=== PATIENT | female | born 1950 | race Caucasian/White ===

== ENCOUNTER 2020-04-25 14:55 | Outpatient (REF) | payer OTHER, SELFPAY ==
--- NOTE | 2020-04-25 15:01 | MM_ITS ---
EXAMINATION: BONE DENSITOMETRY CLINICAL INDICATION: Age-related osteoporosis without current pathological fracture. COMPARISON: Baseline BD dated 08/17/2017. TECHNIQUE: Using a Vinsula DXA System (software version: 13.1) manufactured by [employer], dual-energy x-ray absorptiometry was performed of the lumbar spine and left hip. The images are of good technical quality. Summary results are attached. FINDINGS: AP SPINE L1-L4: Current: BMD 1.028 g/cm2, Z-score 0.8, T-score -1.3, osteopenia, 1.2% decrease from baseline (<5% change is not significant). Baseline: BMD 1.041 g/cm2. LEFT FEMUR, NECK: Current: BMD 0.607 g/cm2, Z-score -1.2, T-score -3.1, osteoporosis. Baseline: BMD 0.651 g/cm2. LEFT FEMUR, TOTAL: Current: BMD 0.703 g/cm2, Z-score -0.8, T-score -2.4, osteopenia, 6.4% decrease from baseline (<5% change is not significant). Baseline: BMD 0.751 g/cm2. IDENTIFIED RISK FACTORS: Osteoporosis, low body weight, menopause. HISTORY OF FRACTURE: None listed. MEDICATIONS: Calcium supplements or multivitamin, vitamin D. MM/XR DEXA axial skeleton IMPRESSION: 1. DIAGNOSIS: Osteoporosis based on the lowest T-score value of -3.1 in the femoral neck applying World Health Organization criteria. 2. 10-YEAR FRACTURE RISK PREDICTION, FRAX: Major osteoporotic fracture (clinical spine, forearm, hip or shoulder) 18.0%. Hip fracture 6.2%. 3. Treatment Recommendations: NOF guidelines recommend consideration for treatment in postmenopausal women and men age 50 and older presenting with the following: -A hip or vertebral (clinical or morphometric) fracture. -T-score less than or equal to -2.5 at the femoral neck or spine after appropriate evaluation to exclude secondary causes. -Low bone mass at the hip or spine and a 10-year fracture probability by FRAX of greater than or equal to 3% for hip fracture or greater than or equal to 20% for major osteoporotic fracture based on the [place] adapted WHO algorithm. 4. Other Recommendations: All treatment decisions require clinical judgment and consideration of individual patient factors, including patient preferences, comorbidities, previous drug use, risk factors not captured in the FRAX model (e.g. frailty, falls, vitamin D deficiency, increased bone turnover, interval significant decline in bone density) and possible under or overestimation of fracture risk by FRAX. Additional medical evaluation for secondary cause of low bone mineral density may be appropriate. FUTURE SCAN RECOMMENDATION: People with diagnosed cases of osteoporosis or at high risk for fracture should have regular bone mineral density tests. For patients eligible for Medicare, routine testing is allowed once every 2 years. The testing frequency can be increased to one year for patients who have rapidly progressing disease, those who are receiving or discontinuing medical therapy to restore bone mass, or have additional risk factors.
== END 2020-04-25 14:56 | disposition home or self-care (01) ==
LOC: HO.MAMMO 14:55
PROVIDERS: PCP Internal Medicine; Visit Provider Internal Medicine
DX: M81.0 Age-related osteoporosis without current pathological fracture (principal); E53.8 Deficiency of other specified B group vitamins; E55.9 Vitamin D deficiency, unspecified; E78.00 Pure hypercholesterolemia, unspecified
CPT/HCPCS: 77080

== ENCOUNTER 2020-05-07 08:21 | Outpatient (REF) | payer OTHER, SELFPAY ==
[2020-05-07 08:55] LABS: COVID-19 Test Negative (Negative)
== END 2020-05-07 08:22 | disposition home or self-care (01) ==
LOC: HO.EMPCOV 08:21
PROVIDERS: Visit Provider Internal Medicine
DX: Z20.822 Contact with and (suspected) exposure to COVID-19 (principal)
CPT/HCPCS: 36415; 87635; C9803

== ENCOUNTER 2020-07-08 12:51 | Outpatient (REF) | payer OTHER, SELFPAY ==
--- NOTE | ~2020-07-08 | MM_ITS ---
EXAMINATION: MM SCREENING DIGITAL BREAST TOMOSYNTHESIS, BILATERAL CLINICAL INFORMATION: Screening. Asymptomatic. The lifetime risk of breast cancer based on the Tyrer-Cuzick Model is 5%. COMPARISON: Mammography: 07/03/2019, 06/21/2018, 06/10/2017 TECHNIQUE: Digital breast tomosynthesis is performed in both the craniocaudal and mediolateral oblique views along with computer-aided detection (CAD). Synthesized 2D images are generated from the tomosynthesis. FINDINGS: There are scattered areas of fibroglandular density (ACR BI-RADS breast composition Category b). There are no significant masses, abnormal calcifications, or other abnormalities. There is biopsy clip marker mid to posterior 9:00 right breast. The axilla and skin contours are unremarkable. No significant changes. MM/MM tomosynthesis screening BI IMPRESSION: No mammographic evidence of malignancy. ASSESSMENT: BI-RADS 1: Negative RECOMMENDATION: Routine annual mammography screening. This patient's information was entered into a reminder system with a target due date for their next mammogram.
== END 2020-07-08 12:52 | disposition home or self-care (01) ==
LOC: HO.MAMMO 12:51
PROVIDERS: Visit Provider Internal Medicine
DX: Z12.31 Encounter for screening mammogram for malignant neoplasm of breast (principal)
CPT/HCPCS: 77063; 77067

== ENCOUNTER 2020-07-29 08:35 | Outpatient (REF) | payer OTHER, SELFPAY ==
[2020-07-29 09:22] LABS: COVID-19 Test Negative (Negative)
== END 2020-07-29 08:36 | disposition home or self-care (01) ==
LOC: HO.EMPCOV 08:35
PROVIDERS: Visit Provider Internal Medicine
DX: Z20.822 Contact with and (suspected) exposure to COVID-19 (principal)
CPT/HCPCS: 36415; 87635; C9803

== ENCOUNTER → 2021-06-18 11:24 | Outpatient (REF) | payer OTHER, SELFPAY ==
--- NOTE | 2021-06-18 11:36 | ECG_ITS ---
Test Reason : 54.9 Blood Pressure : / mmHG Vent. Rate : 085 BPM Atrial Rate : 085 BPM P-R Int : 130 ms QRS Dur : 072 ms QT Int : 352 ms P-R-T Axes : 070 015 000 degrees QTc Int : 418 ms Normal sinus rhythm Nonspecific ST and T wave abnormality Abnormal ECG When compared with ECG of 02-MAR-2014 09:20, Nonspecific T wave abnormality now evident in Lateral leads Referred By: Meghana Garcia Electronically Signed By:Cuate Perez
[2021-06-18 14:01] LABS: Appearance Urine HAZY; Color Urine YELLOW; Glucose Urine UA NEG (NEG); Leukocyte Esterase Urine NEG (NEG); Nitrite Urine NEG (NEG); PH 5.5 (5.0-8.0); Specific Gravity - Urine >= 1.030 (1.005-1.025); Urine Blood NEG (NEG); Urine Ketones NEG (NEG); Urine Protein TRACE MG/DL (NEG-TRACE)
== END ==
LOC: HO.CARD 11:24
PROVIDERS: PCP Internal Medicine; Visit Provider Nurse Practitioner Family
DX: M54.9 Dorsalgia, unspecified (principal)
CPT/HCPCS: 81003; 93005

== ENCOUNTER 2021-06-23 15:24 | Outpatient (REF) | payer OTHER, SELFPAY ==
[2021-06-23 16:12] LABS: Anion Gap 10 (12-20); Blood Urea Nitrogen 13 mg/dL (9-16); Calcium 9.6 mg/dL (8.4-10.2); Carbon Dioxide 33 mmol/L (22-29); Chloride 102 mmol/L (96-108); Estimated Glomerular Filt Rate > 60; Glucose Random 101 mg/dL (60-115); Potassium 3.9 mmol/L (3.3-5.1); Sodium 141 mmol/L (135-145)
== END 2021-06-23 15:25 | disposition home or self-care (01) ==
LOC: HO.LAB 15:24
PROVIDERS: PCP Internal Medicine; Visit Provider Nurse Practitioner Family
DX: M54.9 Dorsalgia, unspecified (principal); R80.9 Proteinuria, unspecified
CPT/HCPCS: 36415; 80048

== ENCOUNTER 2021-06-27 13:21 | Emergency (ER) | payer OTHER, SELFPAY ==
--- NOTE | 2021-06-27 | ECG_ITS ---
Test Reason : back pain Blood Pressure : / mmHG Vent. Rate : 071 BPM Atrial Rate : 071 BPM P-R Int : 134 ms QRS Dur : 074 ms QT Int : 344 ms P-R-T Axes : 070 013 036 degrees QTc Int : 373 ms Normal sinus rhythm with sinus arrhythmia Nonspecific ST abnormality Abnormal ECG When compared with ECG of 18-JUN-2021 11:42, Nonspecific T wave abnormality, improved in Inferior leads Referred By: Generic ED Physician Electronically Signed By:BHUMIKA PARISI MD
--- NOTE | ~2021-06-27 | CT_ITS ---
CT angiogram of chest and abdomen with contrast HISTORY: Mid back pain radiating to the abdomen. TECHNIQUE: CT images were obtained from the thoracic inlet to below the level of the aortic bifurcation following the administration of 71 cc of Omnipaque intravenous contrast. MIP images were also constructed by the technologist on the CT console. This CT examination was performed using dose optimization techniques as appropriate, variously including the following: *Automated exposure control *Adjustment of mA and/or kV according to patient size (this includes techniques or standardized protocols for targeted exams where dose is matched to indication/reason for exam; i.e. extremities or head) *Use of iterative reconstruction technique COMPARISON: CT abdomen/pelvis dated from 03/02/2014. FINDINGS: VASCULAR: The thoracic and abdominal aorta are tortuous and demonstrates atherosclerotic disease but no evidence of dissection or aneurysm. No filling defects are identified within the central pulmonary arteries. The celiac, superior mesenteric, inferior mesenteric, and renal arteries are patent. NONVASCULAR: Chest: Lung: No focal consolidation or pleural effusion. Airways are patent. There is a 0.3 cm calcified nodule in the right lower lobe (7:265). Mediastinum: Normal heart size. Coronary calcifications. No pericardial effusion. No hilar or mediastinal lymphadenopathy. Normal thyroid gland. Pericardium/Pleura: No pleural effusion. No pleural mass or thickening. No pneumothorax. Chest Wall/Axilla: No lymphadenopathy by size criteria. ABDOMEN/PELVIS: Evaluation of the solid organs is limited by the early phase of intravenous contrast. Peritoneal Space: No free air or free fluid. Liver, Gallbladder, Biliary Tree: The liver is normal in size, shape, and attenuation. No focal hepatic lesion or biliary ductal dilatation is present. The gallbladder is unremarkable with no evidence of radiopaque gallstones, gallbladder wall thickening, or obvious pericholecystic inflammatory changes. Pancreas: Unremarkable. Spleen: Unremarkable. Adrenal Glands: A 1.3 x 1 cm lesion in the medial limb of the left adrenal gland is unchanged since 2013. Kidneys and Ureters: The kidneys are normal in size, shape, and attenuation. No hydronephrosis, hydroureter, or calculi seen. No perinephric stranding. Bladder: Underdistended and suboptimally assessed. Gastrointestinal Tract: The stomach and the small bowel are nondilated. Normal appendix. Moderate stool burden throughout the colon. No pericolic inflammatory changes or bowel obstruction. Abdominal Wall: No significant hernia is appreciated. Lymphoid Structures: No lymphadenopathy by size criteria. Osseus Structures: A compression deformity involving T8 is new since 2014. Additional less pronounced compression deformities involving T12, L2, L3, L4 and L5 are also new. Multilevel thoracolumbar spondylosis. Increased sclerosis of both femoral heads suggesting avascular necrosis. CT/CT angio abdomen pelvis IMPRESSION: No evidence of aortic dissection. New compression deformities in the thoracolumbar spine as above. Correlate with point tenderness. Increased sclerosis of the femoral heads raising the possibility of avascular necrosis. No other acute abnormalities in the chest, abdomen or pelvis to explain the patient's symptoms.
[2021-06-27 14:40] VITALS: BP 156/85; PULSE 94; RESP 18; TEMP 36.8; O2SAT 97; BMI 22.4
[2021-06-27 18:00] VITALS: BP 113/70; PULSE 70; RESP 14; O2SAT 97
[2021-06-27 18:01] LABS: Appearance Urine CLEAR; Color Urine YELLOW; Glucose Urine UA NEG (NEG); Leukocyte Esterase Urine NEG (NEG); Nitrite Urine NEG (NEG); Specific Gravity - Urine >= 1.030 (1.005-1.025); Urine Blood NEG (NEG); Urine Ketones 5 MG/DL (NEG); Urine Protein TRACE MG/DL (NEG-TRACE)
[2021-06-27 18:01] LABS: MANUAL DIFF FLAG NO
[2021-06-27 18:13] LABS: INTERNATIONAL NORM RATIO 1.1 (0.9-1.1); Prothrombin Time 12.4 SEC (9.9-13.0)
[2021-06-27 18:17] LABS: Basophils Percent Auto 0.3 % (0-2); Eosinophils Absolute Auto 0.1 X10*3/uL (0.0-0.4); Eosinophils Percent Auto 1.7 % (0-4); Hematocrit 36.7 % (37.0-47.0); Imm Gran Abs Auto 0.01 X10*3/uL (0.00-0.03); Imm Gran Pct Auto 0.1 % (0.0-0.4); Lymphocytes Absolute Auto 1.5 X10*3/uL (1.2-4.9); Lymphocytes Percent Auto 20.9 % (20-40); Mean Corpuscular HGB Conc 32.7 g/dl (31.0-35.0); Mean Corpuscular Hemoglobin 31.3 pg (27.0-33.0); Mean Corpuscular Volume 95.8 fL (80.0-98.0); Mean Platelet Volume 10.5 fL (9.4-12.3); Monocytes Absolute Auto 0.6 X10*3/uL (0.1-1.2); Neutrophils Absolute Auto 4.8 x10*3/uL (2.0-8.3); Platelet Count 226 X10*3/uL (160-400); Red Blood Count 3.83 X10*6/uL (4.20-5.50); Red Cell Distribution Width 12.6 % (11.0-16.0)
[2021-06-27 18:18] LABS: Alanine Aminotransferase 13 U/L (0-31); Albumin Level 4.2 g/dL (3.5-5.0); Alkaline Phosphatase 82 U/L (39-117); Anion Gap 11 (12-20); Aspartate Amino Transferase 17 U/L (5-31); Bilirubin Total 0.6 mg/dL (0.0-1.0); Blood Urea Nitrogen 10 mg/dL (9-16); Calcium 9.5 mg/dL (8.4-10.2); Carbon Dioxide 31 mmol/L (22-29); Chloride 104 mmol/L (96-108); Creatinine Clr Calc Pharmacy 52.7; Estimated Glomerular Filt Rate > 60; Glucose Random 125 mg/dL (60-115); Magnesium 2.3 mg/dL (1.6-2.6); Potassium 3.5 mmol/L (3.3-5.1); Sodium 142 mmol/L (135-145); Total Protein 6.8 g/dL (6.5-8.0)
--- NOTE | 2021-06-27 18:18 | ED_ITS ---
HPI - Back Pain/Injury General Chief Complaint: Back Pain/Injury <BRENNEN Granado - Last Filed: 06/27/21 18:55> Stated Complaint: mid back pain <BRENNEN Granado Last Filed: 06/27/21 18:55> Time Seen by Provider: 06/27/21 17:19 <BRENNEN Granado Last Filed: 06/27/21 18:55> Source: patient <BRENNEN Granado Last Filed: 06/27/21 18:55> Mode of arrival: ambulatory <BRENNEN Granado - Last Filed: 06/27/21 18:55> Limitations: no limitations <BRENNEN Granado Last Filed: 06/27/21 18:55> History of Present Illness HPI Narrative: 70-year-old female with a past medical history of hiatal hernia, hypercholesterolemia, B12 deficiency, low vitamin-D level and osteoporosis presenting to the ED with complaints of a traumatic mid back pain between her scapula near her bra line that she believes radiates intermittently 2 bilateral flank/abdomen for the past 18 days. She reports that it is worse more on the left side than the right. She reports that it is worse when she lays down, bends over or lift anything heavy. She reports that she does carry a heavy pur se and heavy work bag. She reports that she carries them on either arm not always on the left arm. She reports that the pain is better with a sitting position. She has not used anything for the pain other them Tums due to she called Dr. Campa and he told her it could be related to acid reflux although he recommended her to follow-up with her primary care provider. Then she was seen by her primary care provider and had outpatient blood work along with an EKG and her outpatient blood work showed an elevated CO2 level of 33 and her anion gap was 10 otherwise she was told all her other labs were normal. She also had an EKG which revealed nonspecific ST and T-wave abnormalities which was different when compared to her EKG on 03/02/2014. She reports that her PCP believes this might be musculoskeletal in origin and referred her to physical therapy. Although patient is concerned that this could be something else therefore she came here for further evaluation treatment. She denies any fevers, chills, dizziness, headaches, loss of taste or smell, nasal congestion, sore throat, trouble swallowing or breathing, ear pain or ringing, chest pain or shortness of breath, dyspnea on exertion, orthopnea, palpitations, rashes, recent falls or trauma, IV drug use, history of cancer, hypercoagulation disorder, dysuria, hematuria, abnormal vaginal discharge, black or bloody stools, recent travel or sick contacts or any other symptoms complaints or concerns at this time. <BRENNEN Granado - Last Filed: 06/27/21 18:55> MD elicited complaint: back pain <BRENNEN Granado - Last Filed: 06/27/21 18:55> Onset (ago): day(s) (18 ) <BRENNEN Granado - Last Filed: 06/27/21 18:55> Timing: intermittent <BRENNEN Granado - Last Filed: 06/27/21 18:55> Severity: moderate <BRENNEN Granado - Last Filed: 06/27/21 18:55> Similar Symptoms Previously: No <BRENNEN Granado - Last Filed: 06/27/21 18:55> Quality: aching (Feels like a bruise per patient) <BRENNEN Granado - Last Filed: 06/27/21 18:55> Location: thoracic spine <BRENNEN Granado - Last Filed: 06/27/21 18:55> Radiation: abdomen (Bilateral flank) <BRENNEN Granado - Last Filed: 06/27/21 18:55> Exacerbating factors: supine positioning and lifting (Or bending over) <BRENNEN Granado - Last Filed: 06/27/21 18:55> Relieving factors: none <BRENNEN Granado - Last Filed: 06/27/21 18:55> Context: unknown <BRENNEN Granado - Last Filed: 06/27/21 18:55> Associated symptoms: abdominal pain <BRENNEN Granado Last Filed: 06/27/21 18:55> Work related injury: No <BERNNEN Granado - Last Filed: 06/27/21 18:55> Related Data Home Medications: Previous Rx's Medication Instructions Recorded diclofenac sodium 1 % topical gel 2 g TOPICAL QID PRN #100 g 06/18/21 (Arthritis Pain (diclofenac)) lidocaine 4 % topical patch 1 patch TOPICAL DAILY PRN #15 ea 06/18/21 (Aspercreme (lidocaine)) cyclobenzaprine 10 mg tablet 10 mg PO Q8H PRN #14 tab 06/27/21 <BRENNEN Granado - Last Filed: 06/27/21 18:55> Allergies/Adverse Reactions: Allergies Allergy/AdvReac Type Severity Reaction Status Date / Time No Known Allergies Allergy Verified 06/27/21 14:40 [No Known Allergies*] <BRENNEN Granado - Last Filed: 06/27/21 18:55> Review of Systems Review of Systems: Constitutional : No trauma, No Weight loss, No Fever, No Chills, ENT/Mouth : No Hearing loss, No Ear Pain, No Nasal Congestion, No Sinus Pain, No Hoarseness, No sore throat, No Rhinorrhea, No Swallowing Difficulty Cardiovascular : No Chest Pain, No SOB Respiratory : No Cough, No Dyspnea Gastrointestinal : No Nausea, No Vomiting, No Diarrhea, + abdominal Pain, No Hematochezia, No Melena Genitourinary : No Dysuria, No Urinary Frequency, No Hematuria, No Urinary or Bowel Incontinence/retention Musculoskeletal : + Back pain, No neck pain, No joint stiffness, No joint swelling Skin : No Skin Lesions, No rash or signs of infection Neuro : No Weakness, No radiation, No Numbness, No Paresthesias, No headache, no loss of bowel or bladder incontinence, no saddle anesthesia, Focal weakness, No radiation Denies history of IV drug usage. <BRENNEN Granado - Last Filed: 06/27/21 18:55> Yes all other systems are reviewed and are negative <BRENNEN Granado - Last Filed: 06/27/21 18:55> PMF Past Medical History Attestation statement: The following information was validated with the patient. <BRENNEN Granado - Last Filed: 06/27/21 18:55> Medical History: Medical History B12 deficiency Hiatal hernia Hypovitaminosis D Osteoporosis Pure hypercholesterolemia <BRENNEN Granado - Last Filed: 06/27/21 18:55> Surgical History: Surgical History History of breast biopsy <BRENNEN Granado - Last Filed: 06/27/21 18:55> Family History Family History: Family History Father No problems noted. Mother No problems noted. Maternal Grandmother No problems noted. <BRENNEN Granado - Last Filed: 06/27/21 18:55> Social History Social History: Social History Housing: House Alcohol intake: never Patient Tobacco Use Status: Former Tobacco user Tobacco use type: Cigarette e-Cigarette/Vaping Use: Never Used Second Hand Smoke Exposure: No Advance Directives: No Advance Directives Information Provided: Yes service: No Current occupational status: employed <BRENNEN Granado - Last Filed: 06/27/21 18:55> Physical Exam Vital Signs: Vital Signs: Last Vital Signs Temp 98.2 F 06/27/21 14:40 Pulse 70 06/27/21 18:00 Resp 14 06/27/21 18:00 BP 113/70 06/27/21 18:00 Pulse Ox 97 06/27/21 18:00 BMI result Body Mass Index 22.4 vital signs have been reviewed as normal and appeared to be correct. Blood pressure 156/85. Heart rate normal. Respiration rate normal. Temperature normal. Oxygen saturation normal. <BRENNEN Granado - Last Filed: 06/27/21 18:55> Appearance: Alert. Oriented X3. No acute distress. Head: Normal external exam. Normocephalic. Atraumatic. Eyes: PERRLA. EOMI. Conjunctiva and sclera normal. Eyelids normal. ENT: Pharynx normal. Uvula midline. Moist mucous membranes. Neck: Normal inspection. Neck supple. FROM. No adenopathy. Thyroid Normal. No meningeal signs. No neck mass noted. CVS: Normal heart rate and rhythm. Heart sound normal. No murmurs noted. Pulses normal throughout. Respiratory: No respiratory distress. Painless inspiration. Breath sounds normal. No wheezes/rales/rhonchi noted. Chest nontender. No accessory muscle usage noted or decreased air movement noted. Abdomen: Soft and nontender. Bowel sounds normal in all 4 quadrants. No distention noted. No organomegaly noted. No visible injury noted. Back: No CVA tenderness. Full range of motion noted. No obvious deformities, or edema. Full ROM in back and lower extremities. 5/5 strength hip extension/flexion, abduction, adduction. Straight leg raise test negative on right; Straight leg raise test negative on left; Reflexes normal ankle and knee bilaterally; EHL motor strength normal bilaterally. No rashes/lesion/induration/fluctuance or signs infection noted. Skin: Skin warm and dry. Normal skin color. Normal skin turgor. No rashes/lesions/lacerations noted. Nontender at this time. Extremities: No lower extremity edema. No calf tenderness is noted. Extremities exhibit normal range of motion. Extremities nontender. Neuro: Oriented X 3. No motor deficit. No sensory deficit. Reflexes normal. Patient has a normal steady gait. Vascular: + 2 radial pulses b/l. +2 distal pedal pulses b/l. No cyanosis noted to upper lower extremity nails. Patient noted to have normal capillary refill to upper and lower extremities. <BRENNEN Granado - Last Filed: 06/27/21 18:55> Course Course Course Narrative: 17:30pm - 70-year-old female c PMHX of hiatal hernia, hypercholesterolemia, B12 defic iency, low vitamin-D level and osteoporosis presenting to the ED with complaints of a traumatic mid back pain between her scapula near her bra line that she believes radiates intermittently 2 bilateral flank/abdomen for the past 18 days. She reports that it is worse more on the left side than the right. She reports that it is worse when she lays down, bends over or lift anything heavy. She reports that she does carry a heavy purse and heavy work bag. She reports that she carries them on either arm not always on the left arm. She reports that the pain is better with a sitting position. She has not used anything for the pain other them Tums due to she called Dr. Campa and he told her it could be related to acid reflux although he recommended her to follow-up with her primary care provider. Then she was seen by her primary care provider and had outpatient blood work along with an EKG and her outpatient blood work showed an elevated CO2 level of 33 and her anion gap was 10 otherwise she was told all her other labs were normal. She also had an EKG which revealed nonspecific ST and T-wave abnormalities which was different when compared to her EKG on 03/02/2014. She reports that her PCP believes this might be musculoskeletal in origin and referred her to physical therapy. Plan: Labs, EKG, CTA of chest and CT scan abdomen and pelvis then re-evaluate. <BRENNEN Granado - Last Filed: 06/27/21 18:55> Reevaluation(s) Reevaluation #1: - labs obtained and patient with mild anemia with an RBC of 3.83. Hematocrit 36.7. Hemoglobin is 12 which is normal. Carbon dioxide 31. Anion gap 11. Random glucose 125. Otherwise all other labs are within normal limits. UA revealed a trace of protein and 5 ketones otherwise no evidence of UTI. - awaiting CTA of chest and CT scan abdomen pelvis. Will re-evaluate <BRENNEN Granado - Last Filed: 06/27/21 18:55> Time: 18:35 <BRENNEN Granado - Last Filed: 06/27/21 18:55> Reevaluation #2: - Sign out to DENNY Ewing pending CT scans if negative patient can be di scharged with Flexeril. Patient understands agrees with this plan. <BRENNEN Granado - Last Filed: 06/27/21 18:55> Time: 18:55 <BRENNEN Granado - Last Filed: 06/27/21 18:55> MDM - Back Pain/Injury Medical Records Attestation: I reviewed the patient's medical records. <BRENNEN Granado - Last Filed: 06/27/21 18:55> Lab Data Attestation: I reviewed the patient's lab results. <BRENNEN Granado - Last Filed: 06/27/21 18:55> Result diagrams: : 06/27/21 17:54 06/27/21 17:54 <BRENNEN Granado Last Filed: 06/27/21 18:55> Labs: Lab Results 06/27/21 06/27/21 06/27/21 Range/Units 17:45 17:54 17:54 WBC 7.0 (4.8-10.8) X10*3/uL RBC 3.83 L (4.20-5.50) X10*6/uL Hgb 12.0 (12.0-16.0) g/dl Hct 36.7 L (37.0-47.0) % MCV 95.8 (80.0-98.0) fL MCH 31.3 (27.0-33.0) pg MCHC 32.7 (31.0-35.0) g/dl RDW 12.6 (11.0-16.0) % Plt Count 226 (160-400) X10*3/uL MPV 10.5 (9.4-12.3) fL Immature Gran % (Auto) 0.1 (0.0-0.4) % Neut % (Auto) 68.0 (45-73) % Lymph % (Auto) 20.9 (20-40) % Hodgeman % (Auto) 9.0 (2-11) % Eos % (Auto) 1.7 (0-4) % Baso % (Auto) 0.3 (0-2) % Lymph # (Auto) 1.5 (1.2-4.9) X10*3/uL Hodgeman # (Auto) 0.6 (0.1-1.2) X10*3/uL Eos # (Auto) 0.1 (0.0-0.4) X10*3/uL Baso # (Auto) 0.0 (0.0-0.2) X10*3/uL Abs Immat Gran (auto) 0.01 (0.00-0.03) X10*3/uL Absolute Neuts (auto) 4.8 (2.0-8.3) x10*3/uL Absolute Nucleated RBC 0.000 (0.0-0.012) X10*3/uL Nucleated RBC % (auto) 0.0 (0.0-0.2) /100WBC PT 12.4 (9.9-13.0) SEC INR 1.1 (0.9-1.1) Sodium (135-145) mmol/L Potassium (3.3-5.1) mmol/L Chloride (96-108) mmol/L Carbon Dioxide (22-29) mmol/L Anion Gap (12-20) BUN (9-16) mg/dL Creatinine (0.5-1.4) mg/dL Estim Creat Clear Calc Estimated GFR Random Glucose (60-115) mg/dL Calcium (8.4-10.2) mg/dL Magnesium (1.6-2.6) mg/dL Total Bilirubin (0.0-1.0) mg/dL AST (5-31) U/L ALT (0-31) U/L Alkaline Phosphatase (39-117) U/L Troponin I High Sens (<3.5-17.0) ng/L Total Protein (6.5-8.0) g/dL Albumin (3.5-5.0) g/dL Urine Color YELLOW Urine Appearance CLEAR Urine pH 6.0 (5.0-8.0) Ur Specific Union >= 1.030 H (1.005-1.025) Urine Protein TRACE (NEG-TRACE) MG/DL Urine Glucose (UA) NEG (NEG) MG/DL Urine Ketones 5 (NEG) MG/DL Urine Blood NEG (NEG) Urine Nitrite NEG (NEG) Ur Leukocyte Esterase NEG (NEG) 06/27/21 06/27/21 Range/Units 17:54 17:54 WBC (4.8-10.8) X10*3/uL RBC (4.20-5.50) X10*6/uL Hgb (12.0-16.0) g/dl Hct (37.0-47.0) % MCV (80.0-98.0) fL MCH (27.0-33.0) pg MCHC (31.0-35.0) g/dl RDW (11.0-16.0) % Plt Count (160-400) X10*3/uL MPV (9.4-12.3) fL Immature Gran % (Auto) (0.0-0.4) % Neut % (Auto) (45-73) % Lymph % (Auto) (20-40) % Hodgeman % (Auto) (2-11) % Eos % (Auto) (0-4) % Baso % (Auto) (0-2) % Lymph # (Auto) (1.2-4.9) X10*3/uL Hodgeman # (Auto) (0.1-1.2) X10*3/uL Eos # (Auto) (0.0-0.4) X10*3/uL Baso # (Auto) (0.0-0.2) X10*3/uL Abs Immat Gran (auto) (0.00-0.03) X10*3/uL Absolute Neuts (auto) (2.0-8.3) x10*3/uL Absolute Nucleated RBC (0.0-0.012) X10*3/uL Nucleated RBC % (auto) (0.0-0.2) /100WBC PT (9.9-13.0) SEC INR (0.9-1.1) Sodium 142 (135-145) mmol/L Potassium 3.5 (3.3-5.1) mmol/L Chloride 104 (96-108) mmol/L Carbon Dioxide 31 H (22-29) mmol/L Anion Gap 11 L (12-20) BUN 10 (9-16) mg/dL Creatinine 0.76 (0.5-1.4) mg/dL Estim Creat Clear Calc 52.7 Estimated GFR > 60 Random Glucose 125 H (60-115) mg/dL Calcium 9.5 (8.4-10.2) mg/dL Magnesium 2.3 (1.6-2.6) mg/dL Total Bilirubin 0.6 (0.0-1.0) mg/dL AST 17 (5-31) U/L ALT 13 (0-31) U/L Alkaline Phosphatase 82 (39-117) U/L Troponin I High Sens < 3.5 (<3.5-17.0) ng/L Total Protein 6.8 (6.5-8.0) g/dL Albumin 4.2 (3.5-5.0) g/dL Urine Color Urine Appearance Urine pH (5.0-8.0) Ur Specific Union (1.005-1.025) Urine Protein (NEG-TRACE) MG/DL Urine Glucose (UA) (NEG) MG/DL Urine Ketones (NEG) MG/DL Urine Blood (NEG) Urine Nitrite (NEG) Ur Leukocyte Esterase (NEG) <BRENNEN Granado - Last Filed: 06/27/21 18:55> ECG Data Attestation: I personally reviewed and interpreted this ECG as follows: <BRENNEN Granado - Last Filed: 06/27/21 18:55> ECG interpretation date: 06/27/21 <BRENNEN Granado - Last Filed: 06/27/21 18:55> ECG interpretation time: 14:46 <BRENNEN Granado - Last Filed: 06/27/21 18:55> Interpretation: Normal sinus rhythm with sinus arrhythmia with ventricular rate of [address] abnormalities no acute ischemic changes are noted. Similar when compared to prior EKG on 06/18/2021. <BRENNEN Granado Last Filed: 06/27/21 18:55> Discharge Plan Discharge Clinical Impression: Back strain <BRENNEN Granado Last Filed: 06/27/21 18:55> Patient Disposition: Still a Patient <BRENNEN Granado Last Filed: 06/27/21 18:55> Instructions: Back Pain (ED) <BRENNEN Granado Last Filed: 06/27/21 18:55> Prescriptions: New cyclobenzaprine 10 mg tablet 10 mg PO Q8H PRN (Reason: Muscle spasm) Qty: 14 0RF No Action lidocaine [Aspercreme (lidocaine HCl)] 4 % adhesive patch,medicated 1 patch topical DAILY PRN (Reason: pain) Qty: 15 0RF diclofenac sodium [Arthritis Pain (diclofenac)] 1 % gel 2 g topical QID PRN (Reason: pain) Qty: 100 0RF Rx Instructions: apply to single elbow, wrist or hand; for hand includes palm/fingers/back of hand <BRENNEN Granado Last Filed: 06/27/21 18:55> Referrals: Samantha Aguilar MD [Primary Care Provider] - 2 days <BRENNEN Granado - Last Filed: 06/27/21 18:55> Print Language: Latvian <BRENNEN Granado Last Filed: 06/27/21 18:55>
[2021-06-27 18:22] LABS: Troponin-I High Sensitivity < 3.5 ng/L (<3.5-17.0)
[2021-06-27] MEDS: 0.9 % Sodium Chloride 1,000 ML 999 ML IVCONT (18:32)
[2021-06-27] MEDS: iohexoL 350 MG/ML 100 ML INFUS..BTL IV (19:21)
== END 2021-06-27 21:11 | disposition home or self-care (01) ==
PROVIDERS: Physician Assistant Medical; Emergency Provider Emergency Medicine; PCP Internal Medicine
DX: S29.012A Strain of muscle and tendon of back wall of thorax, initial encounter (principal); M81.0 Age-related osteoporosis without current pathological fracture; X58.XXXA Exposure to other specified factors, initial encounter; Y93.9 Activity, unspecified; Y92.9 Unspecified place or not applicable; Y99.9 Unspecified external cause status
CPT/HCPCS: 36415; 71275; 74174; 80053; 81003; 83735; 84484; 85025; 85610; 93005; 96360; 99284; Q9967

== ENCOUNTER → 2021-07-31 08:36 | Outpatient (REF) | payer OTHER, SELFPAY ==
--- NOTE | 2021-07-31 09:41 | CA_ITS ---
Acquisition Time: 2021-07-31 09:02:17 Total Exercise Time: 00:05:01 Test Indications: Abnormal ECG Medications: Protocol: AIMEE Max HR: 146 BPM 96% of Pred: 151 BPM Max BP: 176/062 mmHG Max Work Load: 7.0 METS Exercise stress test with exercise 5 min 1 sec of Aimee protocol, achieving 96% MPHR, 7 METs, without anginal symptoms, without arrythmia, with normotensive response to exercise, with EKGs showing ST depression with upsloping ST segments inferiorly and V4-V6 which does meet criteria for ischemia. EKG at baseline does show a ST scooping/ slight depression inferiorly which could make EKG changes nondiagnostic. Message sent to PCP with report and recommendations for further evaluation. Pt reports not being able to complete the nuclear stress test due to claustrophobia and back pains laying on table. Test reviewed with Dr Perez. Referred By: Meghana Garcia Overread By: SCARLETT GOMEZ
== END ==
LOC: HO.CARD 08:36
PROVIDERS: Visit Provider Nurse Practitioner Family
DX: R94.31 Abnormal electrocardiogram [ECG] [EKG] (principal)
CPT/HCPCS: 93017

== ENCOUNTER 2021-08-01 11:35 | Emergency (ER) | payer OTHER, SELFPAY ==
--- NOTE | 2021-08-01 | ECG_ITS ---
Test Reason : chest pain Blood Pressure : / mmHG Vent. Rate : 084 BPM Atrial Rate : 084 BPM P-R Int : 132 ms QRS Dur : 076 ms QT Int : 340 ms P-R-T Axes : 071 013 028 degrees QTc Int : 401 ms Normal sinus rhythm Possible Left atrial enlargement Nonspecific ST abnormality Abnormal ECG When compared with ECG of 27-JUN-2021 14:46, No significant change was found Referred By: Generic ED Physician Electronically Signed By:Cuate Perez
--- NOTE | ~2021-08-01 | XR_ITS ---
EXAMINATION: PORTABLE CHEST 1 VIEW CLINICAL INFORMATION: chest pain . COMPARISON: 06/28/2019 CT scan. TECHNIQUE: Portable frontal view of the chest was obtained. FINDINGS: The lungs are well expanded. Mild chronic appearing reticular markings but no superimposed focal infiltrate, effusion, edema, or pneumothorax. Cardiac and mediastinal silhouettes are within normal limits for technique. No acute bony abnormality seen. XR/XR chest 1V IMPRESSION: No evidence of acute disease.
[2021-08-01 11:44] VITALS: BP 135/75; PULSE 90; RESP 18; TEMP 36.4; O2SAT 99; BMI 22.8
--- NOTE | 2021-08-01 12:01 | ED_ITS ---
HPI - Chest Pain General Chief Complaint: Chest Pain Stated Complaint: Chest pain Time Seen by Provider: 08/01/21 11:52 Source: patient Mode of arrival: ambulatory Limitations: no limitations History of Present Illness HPI narrative: stress test 07/31 could not complete nuclear portion due to back pains Exercise stress test with exercise 5 min 1 sec of Pierre protocol, achieving 96% MPHR, 7 METs, without anginal symptoms, without arrythmia, with normotensive ?response to exercise, with EKGs showing ST depression with upsloping ST ?segments inferiorly and V4-V6 which does meet criteria for ischemia. EKG at ?baseline does show a ST scooping/ slight depression inferiorly which could make EKG changes nondiagnostic. since she found out recently she had nonspecific ST t wave changes on EKG she has been anxious she thought it meant stenosis. MD complaint: chest pain Pertinent past history: other (nonspecific EKG changes but non ischemic t readmill test 07/31) Onset (ago): week(s) Timing of current episode: episodic Prior episodes: No Onset: during rest and during exertion Pain location: left chest (under bra wire area) Pain radiation: none Severity: mild Quality: other (sharp twinges of pain) Relieving factors: nothing Exacerbating factors: palpation and movement Context: other (recent dx of T4 vertebral compression fracture. ) Treatment prior to arrival: none Related Data Previous Rx's Medication Instructions Recorded diclofenac sodium 1 % topical gel 2 g TOPICAL QID PRN #100 g 06/18/21 (Arthritis Pain (diclofenac)) lidocaine 4 % topical patch 1 patch TOPICAL DAILY PRN #15 ea 06/18/21 (Aspercreme (lidocaine)) Allergies Allergy/AdvReac Type Severity Reaction Status Date / Time No Known Allergies Allergy Verified 06/27/21 14:40 [No Known Allergies*] Review of Systems Review of Systems: Constitutional : No Weight loss, No Fever, No Chills ENT/Mouth : No sore throat, No Rhinorrhea Eyes: No Eye Pain, No Swelling Cardiovascular : pos Chest Pain, no SOB, no Dyspnea on Exertion, No Orthopnea, No Edema, No Palpitations Respiratory : No Cough, No Sputum Gastrointestinal : no Nausea, No Vomiting, No Diarrhea, No abdominal Pain, No Hematochezia, No Melena Genitourinary : No Dysuria, No Urinary Frequency Musculoskeletal : No joint pain, No Myalgias, No Joint Swelling Skin : No Skin Lesions, No rash Neuro : No Weakness, No Numbness, No Dizziness, No Headache Psych : No Anxiety/Panic, No Depression Heme/Lymph: No Bruising, No Lymphadenopathy Endocrine : No Polyuria, No Polydipsia All other systems reviewed and are negative [facility] Past Medical History Attestation statement: The following information was validated with the patient. Source: old records reviewed Medical History B12 deficiency Hiatal hernia Hypovitaminosis D Osteoporosis Pure hypercholesterolemia T4 vertebral fracture Surgical History History of breast biopsy Family History Family History Father No problems noted. Mother No problems noted. Maternal Grandmother No problems noted. Social History Social History Housing: House Alcohol intake: never Patient Tobacco Use Status: Former Tobacco user Tobacco use type: Cigarette e-Cigarette/Vaping Use: Never Used Second Hand Smoke Exposure: No Use of substances other than those prescribed or required for medical reasons: No Advance Directives: No Advance Directives Information Provided: No service: No Current occupational status: employed Physical Exam Vital Signs: Vital Signs: Last Vital Signs Temp 98.7 F 08/01/21 13:03 Pulse 88 08/01/21 13:03 Resp 16 08/01/21 13:03 BP 110/63 08/01/21 13:03 Pulse Ox 98 08/01/21 13:03 BMI result Body Mass Index 22.8 Appearance: Alert. Oriented X3. No acute distress. Anxious Eyes: Pupils equal, round and reactive to light. ENT: Pharynx normal. Neck: Normal inspection. Neck supple. CVS: Normal heart rate and rhythm. Pulses normal. Respiratory: No respiratory distress. Breath sounds normal. Abdomen: Soft and nontender. Skin: Skin warm and dry. Normal skin color. Normal skin turgor. Extremities: No lower extremity edema. No calf ttp Neuro: Oriented X 3. No motor deficit. No sensory deficit. Course Course Course Narrative: atypical chest pain - EKG nonischemic no change from priors, repeat trop negative MDM - Chest Pain MDM Narrative Medical decision making narrative: 70 you female with hx of HLD, osteoporosis recent T4 compression fracture notes she found out she had nonspecific EKG changes and thought it meant stenosis. She has been very nervous about it. She notes her pain has no associated symptoms, hurts where her underwire goes. She also notes is is paroxysmal - this seems very atypical for ACS - will obtain troponin x 2, CXR, had treadmill stress test - negative per cardiology reports. Lab Data Result diagrams: 08/01/21 12:34 08/01/21 12:34 Labs: Lab Results 08/01/21 08/01/21 08/01/21 Range/Units 12:34 12:34 12:34 WBC 7.8 (4.8-10.8) X10*3/uL RBC 3.92 L (4.20-5.50) X10*6/uL Hgb 12.3 (12.0-16.0) g/dl Hct 37.7 (37.0-47.0) % MCV 96.2 (80.0-98.0) fL MCH 31.4 (27.0-33.0) pg MCHC 32.6 (31.0-35.0) g/dl RDW 13.2 (11.0-16.0) % Plt Count 187 (160-400) X10*3/uL MPV 10.4 (9.4-12.3) fL Immature Gran % (Auto) 0.3 (0.0-0.4) % Neut % (Auto) 80.9 H (45-73) % Lymph % (Auto) 10.1 L (20-40) % [place] % (Auto) 7.5 (2-11) % Eos % (Auto) 0.8 (0-4) % Baso % (Auto) 0.4 (0-2) % Lymph # (Auto) 0.8 L (1.2-4.9) X10*3/uL [place] # (Auto) 0.6 (0.1-1.2) X10*3/uL Eos # (Auto) 0.1 (0.0-0.4) X10*3/uL Baso # (Auto) 0.0 (0.0-0.2) X10*3/uL Abs Immat Gran (auto) 0.02 (0.00-0.03) X10*3/uL Absolute Neuts (auto) 6.3 (2.0-8.3) x10*3/uL Absolute Nucleated RBC 0.000 (0.0-0.012) X10*3/uL Nucleated RBC % (auto) 0.0 (0.0-0.2) /100WBC PT 11.4 (9.9-13.0) SEC INR 1.0 (0.9-1.1) APTT 32.3 (24.1-38.0) SEC Sodium 140 (135-145) mmol/L Potassium 4.3 D (3.3-5.1) mmol/L Chloride 106 (96-108) mmol/L Carbon Dioxide 24 (22-29) mmol/L Anion Gap 14 (12-20) BUN 16 D (9-16) mg/dL Creatinine 0.72 (0.5-1.4) mg/dL Estim Creat Clear Calc 55.6 Estimated GFR > 60 Random Glucose 105 (60-115) mg/dL Calcium 9.4 (8.4-10.2) mg/dL Magnesium 2.0 (1.6-2.6) mg/dL Total Bilirubin 0.4 (0.0-1.0) mg/dL Direct Bilirubin 0.2 (0.0-0.5) mg/dL AST 23 (5-31) U/L ALT 16 (0-31) U/L Alkaline Phosphatase 70 (39-117) U/L Troponin I High Sens (<3.5-17.0) ng/L Total Protein 6.8 (6.5-8.0) g/dL Albumin 4.0 (3.5-5.0) g/dL Lipase 34 (8-78) U/L COVID-19 (JESSICA) (Negative) COVID-19 Clin Com 08/01/21 08/01/21 08/01/21 Range/Units 12:34 12:34 14:50 WBC (4.8-10.8) X10*3/uL RBC (4.20-5.50) X10*6/uL Hgb (12.0-16.0) g/dl Hct (37.0-47.0) % MCV (80.0-98.0) fL MCH (27.0-33.0) pg MCHC (31.0-35.0) g/dl RDW (11.0-16.0) % Plt Count (160-400) X10*3/uL MPV (9.4-12.3) fL Immature Gran % (Auto) (0.0-0.4) % Neut % (Auto) (45-73) % Lymph % (Auto) (20-40) % [place] % (Auto) (2-11) % Eos % (Auto) (0-4) % Baso % (Auto) (0-2) % Lymph # (Auto) (1.2-4.9) X10*3/uL [place] # (Auto) (0.1-1.2) X10*3/uL Eos # (Auto) (0.0-0.4) X10*3/uL Baso # (Auto) (0.0-0.2) X10*3/uL Abs Immat Gran (auto) (0.00-0.03) X10*3/uL Absolute Neuts (auto) (2.0-8.3) x10*3/uL Absolute Nucleated RBC (0.0-0.012) X10*3/uL Nucleated RBC % (auto) (0.0-0.2) /100WBC PT (9.9-13.0) SEC INR (0.9-1.1) APTT (24.1-38.0) SEC Sodium (135-145) mmol/L Potassium (3.3-5.1) mmol/L Chloride (96-108) mmol/L Carbon Dioxide (22-29) mmol/L Anion Gap (12-20) BUN (9-16) mg/dL Creatinine (0.5-1.4) mg/dL Estim Creat Clear Calc Estimated GFR Random Glucose (60-115) mg/dL Calcium (8.4-10.2) mg/dL Magnesium (1.6-2.6) mg/dL Total Bilirubin (0.0-1.0) mg/dL Direct Bilirubin (0.0-0.5) mg/dL AST (5-31) U/L ALT (0-31) U/L Alkaline Phosphatase (39-117) U/L Troponin I High Sens < 3.5 < 3.5 (<3.5-17.0) ng/L Total Protein (6.5-8.0) g/dL Albumin (3.5-5.0) g/dL Lipase (8-78) U/L COVID-19 (JESSICA) Negative (Negative) COVID-19 Clin Com See Note ECG Data ECG #1: Attestation: I personally reviewed and interpreted this ECG as follows: ECG interpretation date: 08/01/21 ECG interpretation time: 12:05 Interpretation: Rate: 84 Rhythm: NSR [place]: normal Normal P waves. Normal DAVID. Normal QRS complex. ST T wave : nonspecific no RODERICK, artifact noted inf leads qTC: normal prior studies: no acute ischemia The study has been interpreted contemporaneously by me. . Discharge Plan Discharge Clinical Impression: Atypical chest pain Patient Disposition: Home, Self-Care Instructions: Chest Pain (ED) Additional Instructions: return to ED for any worsening symptoms or concerns chest xray negative, two heart markers of the blood negative follow up with your doctor, rest and take it easy, change your bras Prescriptions: No Action lidocaine [Aspercreme (lidocaine HCl)] 4 % adhesive patch,medicated 1 patch topical DAILY PRN (Reason: pain) Qty: 15 0RF diclofenac sodium [Arthritis Pain (diclofenac)] 1 % gel 2 g topical QID PRN (Reason: pain) Qty: 100 0RF Rx Instructions: apply to single elbow, wrist or hand; for hand includes palm/fingers/back of hand Referrals: Samantha Aguilar MD [Primary Care Provider] - 3 days
--- NOTE | 2021-08-01 12:36 | PC.NURSE ---
iv inserted, labs drawn, layout man applied-nsr, covid swab obtained, will continue to monitor
[2021-08-01 12:43] LABS: MANUAL DIFF FLAG NO
[2021-08-01 12:48] LABS: Basophils Percent Auto 0.4 % (0-2); Eosinophils Absolute Auto 0.1 X10*3/uL (0.0-0.4); Eosinophils Percent Auto 0.8 % (0-4); Hematocrit 37.7 % (37.0-47.0); Hemoglobin 12.3 g/dl (12.0-16.0); Imm Gran Abs Auto 0.02 X10*3/uL (0.00-0.03); Imm Gran Pct Auto 0.3 % (0.0-0.4); Lymphocytes Absolute Auto 0.8 X10*3/uL (1.2-4.9); Lymphocytes Percent Auto 10.1 % (20-40); Mean Corpuscular HGB Conc 32.6 g/dl (31.0-35.0); Mean Corpuscular Hemoglobin 31.4 pg (27.0-33.0); Mean Corpuscular Volume 96.2 fL (80.0-98.0); Mean Platelet Volume 10.4 fL (9.4-12.3); Monocytes Absolute Auto 0.6 X10*3/uL (0.1-1.2); Monocytes Percent Auto 7.5 % (2-11); Neutrophils Absolute Auto 6.3 x10*3/uL (2.0-8.3); Neutrophils Percent Auto 80.9 % (45-73); Platelet Count 187 X10*3/uL (160-400); Red Blood Count 3.92 X10*6/uL (4.20-5.50); Red Cell Distribution Width 13.2 % (11.0-16.0); White Blood Count 7.8 X10*3/uL (4.8-10.8)
[2021-08-01 12:51] LABS: Prothrombin Time 11.4 SEC (9.9-13.0)
[2021-08-01 12:54] LABS: Partial Thromboplastin Time 32.3 SEC (24.1-38.0)
[2021-08-01 13:03] VITALS: BP 110/63; PULSE 88; RESP 16; TEMP 37.1; O2SAT 98
[2021-08-01 13:03] LABS: COVID-19 Test Negative (Negative); IDNOW Serial# 16C4AD1C
[2021-08-01 13:11] LABS: Troponin-I High Sensitivity < 3.5 ng/L (<3.5-17.0)
[2021-08-01 13:18] LABS: Alanine Aminotransferase 16 U/L (0-31); Alkaline Phosphatase 70 U/L (39-117); Anion Gap 14 (12-20); Aspartate Amino Transferase 23 U/L (5-31); Bilirubin Direct 0.2 mg/dL (0.0-0.5); Bilirubin Total 0.4 mg/dL (0.0-1.0); Blood Urea Nitrogen 16 mg/dL (9-16); Calcium 9.4 mg/dL (8.4-10.2); Carbon Dioxide 24 mmol/L (22-29); Chloride 106 mmol/L (96-108); Creatinine Clr Calc Pharmacy 55.6; Estimated Glomerular Filt Rate > 60; Glucose Random 105 mg/dL (60-115); Lipase 34 U/L (8-78); Potassium 4.3 mmol/L (3.3-5.1); Sodium 140 mmol/L (135-145); Total Protein 6.8 g/dL (6.5-8.0)
[2021-08-01 15:19] LABS: Troponin-I High Sensitivity < 3.5 ng/L (<3.5-17.0)
== END 2021-08-01 16:24 | disposition home or self-care (01) ==
PROVIDERS: Emergency Provider Emergency Medicine; PCP Internal Medicine
DX: R07.89 Other chest pain (principal); Z87.891 Personal history of nicotine dependence; Z20.822 Contact with and (suspected) exposure to COVID-19; Z79.899 Other long term (current) drug therapy
CPT/HCPCS: 36415; 71045; 80048; 80076; 83690; 83735; 84484; 85025; 85610; 85730; 87635; 93005; 99283; 99285

== ENCOUNTER → 2021-09-24 14:51 | Outpatient (REF) | payer OTHER, SELFPAY ==
--- NOTE | 2021-09-24 14:54 | CA_ITS ---
Transthoracic Echocardiogram Patient (Last, First, Middle): Annelise Costello M Gender: Female Date of : 1950 Age: 70 Procedure Date: 09/24/2021 Procedure Type: Transthoracic Echocardiogram Location: OP Height: 154.94 cm Weight: 54.43 kg BSA: 1.52 m2 Heart Rate: bpm BP: 110 / 65 mmHg Director Of Event Management: CHRIS Referring MD: Meghana Garcia [employer] CLE[employer] Symptoms: R94.31 - Abnormal electrocardiogram [ECG] [EKG] Study Quality: Good ECG Rhythm: Sinus Conclusions: - The left ventricular systolic function is normal. The calculated ejection fraction is 57% by biplane method. - No obvious valvular pathology seen on this study. Findings Left Ventricle Normal left ventricular cavity size. There is normal left ventricular wall thickness. The left ventricular systolic function is normal. The calculated ejection fraction is 57% by biplane method. There is no evidence of regional wall motion abnormalities. Diastolic function is normal for age. Right Ventricle Normal right ventricular cavity size and systolic function. Atria Both atria are normal in size. Aortic Valve There is a normal trileaflet aortic valve. There is no aortic valve stenosis. There is no aortic valve regurgitation. Mitral Valve The mitral valve appears normal. There is trace mitral valve regurgitation. There is no mitral valve stenosis. Pulmonic Valve The pulmonic valve is likely normal. Tricuspid Valve Normal tricuspid valve structure. There is mild tricuspid valve regurgitation. The pulmonary artery systolic pressure is normal. Great Vessels The aortic annulus, sinuses of valsalva, and asc aorta are normal in size. Venous The inferior vena cava is mildly dilated and collapses greater than 50% with inspiration. Pericardium/Pleural There is no evidence of pericardial effusion. Prior Study Comparison No prior study available for comparison. Recommendations, Care & Conclusions No obvious valvular pathology seen on this study. Measurements 2D Linear Measurements IVSd: 0.81 0.6-0.9/0.6-1.0 cm LVIDd: 3.50 3.9-5.3/4.2-5.9 cm LVIDd Index: 2.30 2.4-3.2/2.2-3.1 cm/m2 LVIDs: 2.35 2.0-3.6 cm LVPWd: 0.87 0.7-1.1 cm LA Diam: 3.00 2.7-3.8/3.0-4.0 cm LAIDs Index: 1.97 1.5-2.3 cm/m2 LV Mass: 99.29 67-162/88-224 g LV Mass Index: 65.32 43-95/49-115 g/m2 LVOT Diam: 1.90 3.0+(-)1.3 cm 2D Systolic Function EF 4C: 56.10 >55% EF 2C: 56.80 >55% EF BiP: 56.60 >55% Mitral Valve MV Pk E: 0.75 MV PK A: 0.64 MV Decel Time: 313.00 E/A: 1.20 E'Lateral: 8.59 E'Medial: 8.59 E/E' Med: 8.70 E/E' Lat: 8.70 PHT: 92.00 MVA PHT: 2.39 Decel [place]: 2.39 Aortic Valve AoV Pk Andrew: 1.41 AoV Mn Andrew: 0.91 AoV VTI: 0.25 AoV Pk Grad: 8.00 Aov Mn Grad: 4.00 SILVA Cont.VTI: 2.53 LVOT LVOT Pk Andrew: 1.12 LVOT Mn Andrew: 0.76 LVOT VTI: 0.23 LVOT Pk Grad: 5.00 LVOT Mn Grad: 3.00 LVOT Diam: 1.90 LVOT Area: 2.84 Diastolic Function MV Pk E: 0.75 MV Pk A: 0.64 E/A: 1.20 E'Medial: 8.59 E/E' Med: 8.70 E' Laterial: 8.59 E/E' Lat: 8.70 Right Ventricle TAPSE (mm): 24.60 TVS' Andrew: 12.80 Tricuspid Valve TR Pk Andrew: 2.16 TR Pk Grad: 19.00 RA Press: 8.00 RVSP: 27.00 Great Vessels Aorta Sinus of Valsalva: 3.00 2.0-3.[address] [place]: 2.75 1.7-3.4 cm Ao Asc: 3.10 2.1-3.4 cm Ao Arch: 2.60 Updated in Other Vendor System with Status of Final Sergio Olvera MD electronically signed on 09/27/2021 11:56:49 AM with status of Final
== END ==
LOC: HO.CARD 14:51
PROVIDERS: Visit Provider Nurse Practitioner Family
DX: R94.31 Abnormal electrocardiogram [ECG] [EKG] (principal)
CPT/HCPCS: 93306

== ENCOUNTER → 2021-11-04 10:54 | Outpatient (REF) | payer OTHER, SELFPAY ==
--- NOTE | 2021-11-04 10:58 | CA_ITS ---
Acquisition Time: 2021-11-04 11:17:04 Total Exercise Time: 00:06:20 Test Indications: Abnormal ECG Medications: SEE H Protocol: AIMEE Max HR: 144 BPM 95% of Pred: 151 BPM Max BP: 158/068 mmHG Max Work Load: 7.5 METS Exercise stress test with exercise 6 min 20 sec of Aimee protocol, achieving 94% MPHR, 7.3 METs, without anginal symptoms, without arrythmia, with normotensive response to exercise, with baseline EKG showing nonspecific ST abnormalites, then with exercise there is [address] depression V3-V6 and J point depression inferiorly with upsloping ST segements. The baseline findings may make the stress EKG nondiagnostic. Echo images obtained by tech at rest and immediately post peak exercise. Definity contrast used. Test rev iewed with Dr Perez. STRESS ECHO : Technique : Images were obtained at rest and immediately post exercise withn 1 minute 10 seconds. Definity contrast was used to enhance endocardial definition. Images were obtained in multiple views and compared side to side. Findings : At rest images are of good quality. LV systolic function is normal with normal wall motion. Post exercise images are of borderline quality due to off axis parasternal windows. There is good augmentation of overall LV systolic function with no regional wall motion abnormalities. Conclusion : Stress echo is negative for ischemia Referred By: Bhumika Raza Overread By: BHUMIKA RAZA MD
== END ==
LOC: HO.CARD 10:54
PROVIDERS: Visit Provider Internal Medicine Cardiovascular Disease
DX: R94.39 Abnormal result of other cardiovascular function study (principal)
CPT/HCPCS: 93350; Q9957

== ENCOUNTER 2022-02-18 08:16 | Outpatient (REF) | payer OTHER, SELFPAY ==
[2022-02-18 09:00] LABS: Phosphorus 3.6 mg/dL (2.7-4.5)
[2022-02-18 09:22] LABS: Free T4 (Free Thyroxine) 0.96 ng/dL (0.71-1.85); Thyroid Stimulating Hormone 1.11 uIU/mL (0.32-4.0)
[2022-02-18 10:09] LABS: Cortisol Random < 1.0 ug/dL
[2022-02-20 10:22] LABS: DHEA Sulfate 24 mcg/dL (9-118)
[2022-02-24 12:03] LABS: Prot Elec - Albumin 4.2 g/dL (3.8-4.8); Prot Elec - Alpha1 0.3 g/dL (0.2-0.3); Prot Elec - Alpha2 0.6 g/dL (0.5-0.9); Prot Elec - Beta 1 0.4 g/dL (0.4-0.6); Prot Elec - Beta 2 0.3 g/dL (0.2-0.5); Prot Elec - Total Protein 6.8 g/dL (6.1-8.1)
[2022-02-25 10:12] LABS: Dexamethasone 268 ng/dL
[2022-02-28 16:15] LABS: Catecholamine Frac, Total 438 pg/mL
== END 2022-02-18 08:17 | disposition home or self-care (01) ==
LOC: HO.LAB 08:16
PROVIDERS: PCP Internal Medicine; Visit Provider Internal Medicine Endocrinology, Diabetes & Metabolism
DX: M81.0 Age-related osteoporosis without current pathological fracture (principal); E27.8 Other specified disorders of adrenal gland
CPT/HCPCS: 80299; 82384; 82533; 82627; 84100; 84165; 84439; 84443; 86335

== ENCOUNTER 2022-02-19 08:25 | Outpatient (REF) | payer OTHER, SELFPAY ==
--- NOTE | ~2022-02-19 | CT_ITS ---
EXAMINATION: CT ABDOMEN WITHOUT AND WITH CONTRAST CLINICAL INFORMATION: Other specified disorder of adrenal gland COMPARISON: Previous CT of the abdomen and pelvis February 2014 TECHNIQUE: Contiguous axial thin section helical images of the abdomen were performed before and after the administration of oral contrast and 85 mL of Omnipaque 350 intravenous contrast. The data set was reformatted in the coronal and sagittal planes and reviewed on an independent workstation. This CT examination was performed using dose optimization techniques as appropriate, variously including the following: *Automated exposure control *Adjustment of mA and/or kV according to patient size (this includes techniques or standardized protocols for targeted exams where dose is matched to indication/reason for exam; i.e. extremities or head) *Use of iterative reconstruction technique DLP: 242 mGy-cm FINDINGS: LUNG BASES: Normal LIVER, GALLBLADDER, AND BILIARY TREE: The liver is normal. The gallbladder is contracted. No focal liver lesion or biliary duct dilatation. PANCREAS: Normal SPLEEN: Normal ADRENAL GLANDS AND KIDNEYS: There is a 1 x 1.6 cm lesion in the posterior limb of the left adrenal gland. This is stable in size from previous exam from 2013. Hounsfield units precontrast measure 5. Immediate Hounsfield units postcontrast measure 62. Delayed Hounsfield units postcontrast measure 32. This is suggestive of a benign lipid rich adenoma with 48 % relative percentage washout. There is question of a small low-attenuation right adrenal lesion measuring 0.8 x 1.4 cm. Hounsfield units precontrast measure -15. Hounsfield units immediately post contrast measure 51. Delayed Hounsfield units post-IV contrast measure 16. This is also suggestive of a benign lipid rich adenoma with 69% relative percentage washout. In retrospect, this is stable from February 2014 exam as well. BOWEL LOOPS: Normal LYMPH NODES: Normal. VASCULAR: Atherosclerotic disease. No aneurysm. BONES: Degenerative changes of the spine and multiple Schmorl's nodes. CT/CT abdomen wo/w IV con IMPRESSION: Stable lipid rich benign adenoma the left adrenal gland and question smaller benign lipid rich adenoma in the right adrenal gland. Fleischner guidelines were followed.
[2022-02-19] MEDS: iohexoL 350 MG/ML 100 ML INFUS..BTL IV (09:17)
[2022-02-20 08:11] LABS: Creatinine POC 0.4 mg/dL (0.5-1.4); GFR POC > 60
== END 2022-02-19 08:26 | disposition home or self-care (01) ==
LOC: HO.CT 08:25
PROVIDERS: PCP Internal Medicine; Visit Provider Internal Medicine Endocrinology, Diabetes & Metabolism
DX: E27.8 Other specified disorders of adrenal gland (principal)
CPT/HCPCS: 74170; 82565; Q9967

== ENCOUNTER 2022-02-23 09:09 | Outpatient (REF) | payer OTHER, SELFPAY ==
[2022-02-23 10:13] LABS: Creatinine, mg/dL 136.31
[2022-02-23 14:35] LABS: Creatinine, 24Hr Urine 0.8 G/Day (1.0-2.0); Total Volume 24 Hour Urine 600 mL
[2022-02-24 20:31] LABS: Calcium, 24 Hr Urine 238 mg/24 h; Calcium/Creatinine Ratio 315 mg/g creat (30-275); Creatinine 24Hr Urine 0.76 g/24 h (0.50-2.15)
== END 2022-02-23 09:10 | disposition home or self-care (01) ==
LOC: HO.LNP 09:09
PROVIDERS: Visit Provider Internal Medicine Endocrinology, Diabetes & Metabolism
DX: M81.0 Age-related osteoporosis without current pathological fracture (principal)
CPT/HCPCS: 82340; 82570

== ENCOUNTER 2022-03-04 12:15 | Outpatient (REF) | payer OTHER, SELFPAY ==
[2022-03-04 12:42] LABS: MANUAL DIFF FLAG NO
[2022-03-04 14:18] LABS: Basophils Percent Auto 0.5 % (0-2); Eosinophils Absolute Auto 0.1 X10*3/uL (0.0-0.4); Eosinophils Percent Auto 1.6 % (0-4); Hematocrit 37.9 % (37.0-47.0); Hemoglobin 12.3 g/dl (12.0-16.0); Imm Gran Abs Auto 0.02 X10*3/uL (0.00-0.03); Imm Gran Pct Auto 0.3 % (0.0-0.4); Lymphocytes Absolute Auto 1.2 X10*3/uL (1.2-4.9); Lymphocytes Percent Auto 18.4 % (20-40); Mean Corpuscular HGB Conc 32.5 g/dl (31.0-35.0); Mean Corpuscular Hemoglobin 31.5 pg (27.0-33.0); Mean Corpuscular Volume 96.9 fL (80.0-98.0); Mean Platelet Volume 10.6 fL (9.4-12.3); Monocytes Absolute Auto 0.6 X10*3/uL (0.1-1.2); Monocytes Percent Auto 8.7 % (2-11); Neutrophils Absolute Auto 4.5 x10*3/uL (2.0-8.3); Neutrophils Percent Auto 70.5 % (45-73); Platelet Count 197 X10*3/uL (160-400); Red Blood Count 3.91 X10*6/uL (4.20-5.50); Red Cell Distribution Width 12.4 % (11.0-16.0); White Blood Count 6.4 X10*3/uL (4.8-10.8)
[2022-03-04 15:06] LABS: Alanine Aminotransferase 15 U/L (0-31); Albumin Level 4.1 g/dL (3.5-5.0); Alkaline Phosphatase 46 U/L (39-117); Anion Gap 13 (12-20); Aspartate Amino Transferase 22 U/L (5-31); Bilirubin Total 0.8 mg/dL (0.0-1.0); Blood Urea Nitrogen 9 mg/dL (9-16); Calcium 9.3 mg/dL (8.4-10.2); Carbon Dioxide 28 mmol/L (22-29); Chloride 104 mmol/L (96-108); Cholesterol 255 mg/dL; Estimated Glomerular Filt Rate > 60; Glucose Fasting 91 mg/dL (60-99); HDL Cholesterol 85 mg/dL; LDL Cholesterol Calculated 162 mg/dl; Sodium 141 mmol/L (135-145); Total Protein 6.6 g/dL (6.5-8.0); Triglycerides 41 mg/dL
[2022-03-04 15:28] LABS: Folate 17.6 ng/mL (> or = 4.0); Vitamin B12 800 pg/mL (200-900)
[2022-03-04 15:53] LABS: Vitamin D 25-OH Total 32.1 ng/mL (>30)
== END 2022-03-04 12:16 | disposition home or self-care (01) ==
LOC: HO.LAB 12:15
PROVIDERS: PCP Internal Medicine; Visit Provider Internal Medicine Endocrinology, Diabetes & Metabolism
DX: M81.0 Age-related osteoporosis without current pathological fracture (principal); E78.00 Pure hypercholesterolemia, unspecified; E78.5 Hyperlipidemia, unspecified; E53.8 Deficiency of other specified B group vitamins; E55.9 Vitamin D deficiency, unspecified
CPT/HCPCS: 36415; 80053; 80061; 82306; 82607; 82746; 83835; 85025

== ENCOUNTER 2022-03-23 15:09 | Outpatient (REF) | payer OTHER, SELFPAY ==
--- NOTE | ~2022-03-23 | MM_ITS ---
EXAMINATION: MM SCREENING DIGITAL BREAST TOMOSYNTHESIS, BILATERAL CLINICAL INFORMATION: Screening. Asymptomatic. The lifetime risk of breast cancer based on the Tyrer-Cuzick Model is 4%. COMPARISON: Mammography: 07/08/2020, 07/03/2019, 06/21/2018 TECHNIQUE: Digital breast tomosynthesis is performed in both the craniocaudal and mediolateral oblique views along with computer-aided detection (CAD). Synthesized 2D images are generated from the tomosynthesis. FINDINGS: There are scattered areas of fibroglandular density (ACR BI-RADS breast composition Category b). There are no significant masses, abnormal calcifications, or other abnormalities. Parenchymal pattern is similar to prior studies. There is biopsy clip marker again noted mid 9:00 right breast. There is no developing density or interval architectural abnormality. No significant changes from prior exams. MM/MM tomosynthesis screening BI IMPRESSION: No mammographic evidence of malignancy. ASSESSMENT: BI-RADS 1: Negative RECOMMENDATION: Routine annual mammography screening. This patient's information was entered into a reminder system with a target due date for their next mammogram.
== END 2022-03-23 15:10 | disposition home or self-care (01) ==
LOC: HO.MAMMO 15:09
PROVIDERS: PCP Internal Medicine; Visit Provider Internal Medicine
DX: Z12.31 Encounter for screening mammogram for malignant neoplasm of breast (principal)
CPT/HCPCS: 77063; 77067

== ENCOUNTER → 2022-06-10 09:35 | Outpatient (BNVA) | payer OTHER, SELFPAY | PROVIDERS: PCP Internal Medicine; Visit Provider Internal Medicine Endocrinology, Diabetes & Metabolism | DX: Z13.89 Encounter for screening for other disorder (principal) ==

== ENCOUNTER 2022-06-10 10:49 | Outpatient (REF) | payer OTHER, SELFPAY ==
[2022-06-16 14:33] LABS: Metanephrine, Free 67 pg/mL (<=57); Normetanephrines, Free 78 pg/mL (<=148); Total Metanephrine, Free 145 pg/mL (<=205)
== END 2022-06-10 10:50 | disposition home or self-care (01) ==
LOC: HO.10HDL 10:49
PROVIDERS: Visit Provider Internal Medicine Endocrinology, Diabetes & Metabolism
DX: E27.8 Other specified disorders of adrenal gland (principal)
CPT/HCPCS: 36415; 83835

== ENCOUNTER 2022-06-29 09:10 | Outpatient (REF) | payer OTHER, SELFPAY ==
[2022-06-29 10:20] LABS: Creatinine, mg/dL 126.01
[2022-06-29 14:02] LABS: Creatinine, 24Hr Urine 0.9 G/Day (1.0-2.0); Total Volume 24 Hour Urine 725 mL
[2022-07-04 02:34] LABS: Metanephrine, Free 24U 164 mcg/24 h (90-315); Normetanephrine, Free 24U 181 mcg/24 h (122-676); Total Metanephrine, Free 24U 345 mcg/24 h (224-832); Total Volume 24U 725 mL
== END 2022-06-29 09:11 | disposition home or self-care (01) ==
LOC: HO.LNP 09:10
PROVIDERS: Visit Provider Internal Medicine Endocrinology, Diabetes & Metabolism
DX: E27.8 Other specified disorders of adrenal gland (principal)
CPT/HCPCS: 82570; 83835

== ENCOUNTER 2022-12-02 15:29 | Outpatient (AMB) | payer OTHER, SELFPAY ==
[2022-12-02 15:31] VITALS: BP 126/78; PULSE 88; O2SAT 98; BMI 24.7
--- NOTE | 2022-12-02 15:31 | A.OFFPC_ITS ---
Vital Signs 12/02/22 15:31 Height 5 ft Weight 126 lb 4 oz BMI 24.7 BP 126/78 Blood Pressure Location Lt brachial Position Sitting Pulse 88 Pulse Source Pulse Oximeter Pulse Oximetry (%) 98 Oxygen Delivery Method Room Air Intake Visit Reasons: Annual exam Intake Note: Patient is here today for a physical. 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 by: Self / Same As Patient Allergies No Known Allergies [No Known Allergies*] Allergy (Verified 12/02/22 15:46) Medication List - Last Reconciled 12/02/22 by Samantha Phillips MD ascorbic acid (vitamin C) 500 mg PO DAILY biotin 1 mg PO DAILY calcium carbonate-vitamin D3 600 mg-12.5 mcg (500 unit) caps PO cholecalciferol (vitamin D3) 50 mcg PO DAILY garlic 1,000 mg PO DAILY glucosamine sulfate (Glucosamine) 500 mg PO QID mecobalamin (vitamin B12) 1,000 mcg PO DAILY dytbguxs-gxk-UT-lycopen-lutein 0.4 mg-300 mcg- 250 mcg (Complete Multivitamin Adult 50 Plus) 1 tab PO DAILY omega-3 fatty acids 1,000 mg PO DAILY psyllium husk (Daily Fiber) 0.8 grams PO DAILY vit C,M-Su-rzkgi-lutein-zeaxan 250-90-40-1 mg (PreserVision AREDS-2) 2 tabs PO ONCE Tobacco use date assessed: 06/18/21 Fall risk assessment: No Falls in past year Last assessed Fall Risk: 12/02/22 Dental Screening Dental Screen Date: 12/02/22 Did you have a dental visit in the last 12 months?: Yes Did you have a dental problem in the last 6 months where you did not have access to dental care?: No Was dental information given to patient?: Patient has dentist HPI HPI Comments History of Present Illness Details This is a 71-year-old female that comes for her physical exam. Mammogram done March 2022 and was normal. Osteoporosis is follow by Endocrinology as well as adrenal mass. Last colonoscopy was [address] Betancourt which recommended to repeat in 5 to 7 years. She complaints of right elbow warmth, tender, redness and swelling that started few days ago. This is most likely due to cellulitis. I will order an x-ray to rule out an abscess. No fever or tachycardia. Has full active range of motion.. [facility] Medical History (Updated 12/02/22 @ 16:02 by Samantha Phillips MD) Adrenal mass B12 deficiency Hiatal hernia Hypovitaminosis D Osteoporosis Pure hypercholesterolemia T4 vertebral fracture Surgical History History of breast biopsy Family History Father No problems noted. Mother No problems noted. Maternal Grandmother No problems noted. Social History (Updated 12/02/22 @ 15:51 by Samantha Phillips MD) Household Members: None Household Members Other:: roomate Housing: House Alcohol intake: former Patient Tobacco Use Status: Former Tobacco user Tobacco use type: Cigarette e-Cigarette/Vaping Use: Never Used Second Hand Smoke Exposure: No service: No Current occupational status: employed Cognitive needs: No Hearing needs: No Vision needs: Yes Questionnaire PHQ-9 Over the last 2 weeks, how often have you been bothered by any of the following problems? 1. Little interest or pleasure in doing things: not at all 2. Feeling down, depressed, or hopeless: not at all 3. Trouble falling or staying asleep, or sleeping too much: not at all 4. Feeling tired or having little energy: not at all 5. Poor appetite or overeating: not at all 6. Feeling bad about yourself - or that you are a failure or have let yourself or your family down: not at all 7. Trouble concentrating on things, such as reading the newspaper or watching television: not at all 8. Moving or speaking so slowly that other people could have noticed. Or the opposite - being so fidgety or restless that you have been moving around a lot more than usual: not at all 9. Thoughts that you would be better off or of hurting yourself in some way: not at all Total score: 0 Depression Screening Interpretation: Negative 96419 - PHQ-9 Billing: Yes Source: Developed by Drs. Dimitrios Peterson, Avelina Grace, Arthur Molina and colleagues, with an educational tasneem from [employer]. Thrive Questionnaire Date Thrive assessed: 12/02/22 I am a: Patient What is your living situation today?: I have a steady place to live Within the past 12 months, did the food you bought not last and you didn't have the money to get more?: Never true Within the past 12 months, did you worry whether your food would run out before you got money to buy more?: Never true Do you have trouble paying for medicines?: No Do you have trouble getting transportation to medical appointments?: No Do you have trouble paying your heating and electricity bill?: No Do you have trouble taking care of your child, family member or friend?: No Do you have trouble with day-to-day activities such as bathing, preparing meals, shopping, managing finances, etc.?: No Are you currently unemployed and looking for a job?: No Are you interested in more education?: No Please select the resources that you would like help with: None Currently or been in a relationship where the following occur: no concerns reported AUDIT C Alcohol Use Questionnaire (AUDIT-C) 1. How often do you have a drink containing alcohol?: Never 3. How often do you have six or more drinks on one occasion?: Never Total Score: 0 Score Reviewed/Action Taken: No NED-7 AMB Questionnaire NED-7 Date NED - 7 assessed: 12/02/22 Feeling nervous, anxious, or on edge: 0 = Not at all Not being able to stop or control worryin = Not at all Worrying too much about different things: 0 = Not at all Trouble relaxin = Not at all Being so restless that it is hard to sit still: 0 = Not at all Becoming easily annoyed or irritable: 0 = Not at all Feeling afraid as if something awful might happen: 0 = Not at all Total NED-7 score (0-4 normal; 5-9 mild; 10-14 moderate; 15-21 severe): 0 Source: Developed by Drs. Dimitrios Peterson, Avelina Grace, Arthur Molina and colleagues, with an educational tasneem from [employer]. NED-7 Assessment Billing NED-7 Assessment Tool: NED-7 Assessment 03226 Review of Systems Const All systems reviewed & are unremarkable except as noted in HPI and below Eyes Reports no additional complaints, Denies change in vision and Denies other visual disturbances Card Denies chest pain at rest, Denies chest pain with activity, Denies edema, Denies irregular heart rhythm, Denies claudication, Denies dyspnea, Denies dyspnea on exertion, Denies orthopnea, Denies paroxysmal nocturnal dyspnea and Denies slow heart rate Resp Denies cough, Denies dyspnea and Denies dyspnea on exertion GI Denies abdominal pain, Denies change in bowel habits, Denies excessive flatus, Denies nausea and Denies vomiting Denies urinary incontinence, Denies urinary hesitancy and Denies urinary urgency Musc Denies abnormal gait, Denies atrophy, Denies deformity and Denies limited range of motion Skin/Breast Denies bleeding lesions, Denies changing lesions and Denies rash Neuro Denies abnormal gait and Denies lack of coordination Physical exam (Primary Care) Vital Signs: Last Vital Signs Pulse 88 12/02/22 15:31 BP 126/78 12/02/22 15:31 Pulse Ox 98 12/02/22 15:31 Oxygen Delivery Method Room Air 12/02/22 15:31 BMI result Body Mass Index 24.7 Tobacco/Smoking Status: Tobacco use Status Tobacco use date assessed 06/18/21 12/02/22 15:33 Patient Tobacco Use Status Former Tobacco user 12/02/22 15:33 Tobacco use type Cigarette 12/02/22 15:33 e-Cigarette/Vaping Use Never Used 12/02/22 15:33 PHQ-9: PHQ-9 Score PHQ-9: Total score 0 12/02/22 15:42 Depression Screening Interpretation: Negative Thrive Assessment: Date of Thrive Assessment Date Thrive assessed 12/02/22 12/02/22 15:42 Currently or been in a relationship where the following occur: no concerns reported Const Orientation/consciousness: patient oriented x3 [facility] Head: Yes normal to inspection, Yes normocephalic and Yes atraumatic Ears: external ears normal Eyes General: appearance normal, both eyes and all related structures Eyelids: Yes eyelids normal Conjunctivae: conjunctivae normal Neck Neck: Yes normal visual inspection and Yes supple Resp Effort & Inspection: normal respiratory effort Auscultation: clear to auscultation bilaterally Cardio Jugular venous distension: no JVD Rate: regular rate Rhythm: regular rhythm Heart sounds: S1 normal heart sound present and S2 normal heart sound present GI Inspection: Yes normal to inspection Palpation (GI): Soft to palpation and nontender Auscultation: normal bowel sounds Skin Other: right elbow warm, tender, swollen and red General skin exam: no rashes or lesions noted Neuro General: patient oriented x3 and no focal motor deficits Extrem General: Yes full ROM Psych Appearance: grossly normal Assessment and Plan Assessment & Plan (1) Encounter for physical examination: Code(s): Z00.00 - Encounter for general adult medical examination without abnormal findings Plan: Repeat in a year Orders: Orders Vitamin B12 and Folate Today E53.8 - Deficiency of other specified B group vitamins Comprehensive [place]. Panel Fast Today I25.10 - Atherosclerotic heart disease of [place] coronary artery without angina pectoris Lipid Panel Today E78.5 - Hyperlipidemia, unspecified Vitamin D 25-OH Total Today E55.9 - Vitamin D deficiency, unspecified XR elbow RT 2V Today L03.113 - Cellulitis of right upper limb Referrals Gastroenterology Referral Z12.11 - Encounter for screening for malignant neoplasm of colon Medications: New sulfamethoxazole-trimethoprim 800-160 mg (Bactrim DS) 1 tab PO BID 5 days 10 tabs 0RF Coding Level of Care Code Est Pt Prev Care >65y(31469) Diagnoses Encounter for physical examination Z00.00 Additional Codes NED-7 Assessment Billing - NED-7 Assessment Tool: NED-7 Assessment 47779 ([id number]) Time Spent (min) 31
== END 2022-12-02 15:58 | disposition home or self-care (01) ==
PROVIDERS: PCP Internal Medicine; Visit Provider Internal Medicine
DX: Z00.00 Encounter for general adult medical examination without abnormal findings (principal)
CPT/HCPCS: 99397

== ENCOUNTER 2022-12-02 16:13 | Outpatient (REF) | payer OTHER, SELFPAY ==
--- NOTE | ~2022-12-02 | XR_ITS ---
EXAMINATION: XR ELBOW, RIGHT CLINICAL INFORMATION: Cellulitis of right upper limb COMPARISON: None available. TECHNIQUE: AP, lateral, and oblique views of the right elbow. FINDINGS: The elbow joint spaces are normal. No fracture, subluxation or joint effusion. No erosions or periostitis. There is soft tissue edema of the elbow, predominantly posterior and medial aspect of elbow, without soft tissue gas or radiopaque foreign body. Soft tissues are predominantly swollen over the region of the olecranon bursa. Olecranon bursitis is suspected. XR/XR elbow RT 2V IMPRESSION: * Soft tissues are swollen in this patient with a history of cellulitis. There is no soft tissue gas. * The soft tissue swelling posterior to the olecranon suggests likelihood of olecranon bursitis.
== END 2022-12-02 16:14 | disposition home or self-care (01) ==
LOC: HO.XRAY 16:13
PROVIDERS: PCP Internal Medicine; Visit Provider Internal Medicine
DX: L03.113 Cellulitis of right upper limb (principal)
CPT/HCPCS: 73070

== ENCOUNTER 2022-12-09 09:14 | Outpatient (AMB) | payer OTHER, SELFPAY ==
[2022-12-09 09:16] VITALS: BP 104/56; PULSE 56; BMI 24.4
--- NOTE | 2022-12-09 09:16 | MHC.OFFVIS ---
Intake Vital Signs 12/09/22 09:16 Height 5 ft Weight 125 lb 0.034 oz BMI 24.4 BP 104/56 L Blood Pressure Location Lt brachial Position Sitting Pulse 56 Pulse Source Pulse Oximeter Intake Visit Reasons: f/u osteoporosis/adrenal mass Intake Note: Patient present for Osteoporosis and Adrenal Mass follow up visit. 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 Accompanied by: Self / Same As Patient Allergies No Known Allergies [No Known Allergies*] Allergy (Verified 12/09/22 09:19) Medication List - Last Reconciled 12/09/22 by Dimitrios Nagy MD ascorbic acid (vitamin C) 500 mg PO DAILY biotin 1 mg PO DAILY calcium carbonate-vitamin D3 600 mg-12.5 mcg (500 unit) caps PO cholecalciferol (vitamin D3) 50 mcg PO DAILY garlic 1,000 mg PO DAILY glucosamine sulfate (Glucosamine) 500 mg PO QID mecobalamin (vitamin B12) 1,000 mcg PO DAILY fniemrfq-ttb-KN-lycopen-lutein 0.4 mg-300 mcg- 250 mcg (Complete Multivitamin Adult 50 Plus) 1 tab PO DAILY omega-3 fatty acids 1,000 mg PO DAILY psyllium husk (Daily Fiber) 0.8 grams PO DAILY vit C,O-Ku-qhyha-lutein-zeaxan 250-90-40-1 mg (PreserVision AREDS-2) 2 tabs PO ONCE HPI HPI Comments History of Present Illness Details 71 YO F is seen in consultation at the request of PCP for Osteoporosis. First diagnosed in 08/17/2017. History of pathologic fracture in T8 or ONJ. Has few servings of dietary calcium per day in the form of ice cream and cheese . Takes Calcium supplement 600 mg daily in divided doses. Takes 2500 IU of Vitamin D daily. Denies ever using PPI, anticoagulant, antiepileptic or glucocorticoid medication. 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 UTD on dental cleanings and does not sees dentist every 6 months. Has planned upcoming dental work or extractions. DXA dated 04/25/20 :FINDINGS: AP SPINE L1-L4: Current: BMD 1.028 g/cm2, Z-score 0.8, T-score -1.3, osteopenia, 1.2% decrease from baseline (<5% change is not significant). Baseline: BMD 1.041 g/cm2. LEFT FEMUR, NECK: Current: BMD 0.607 g/cm2, Z-score -1.2, T-score -3.1, osteoporosis. Baseline: BMD 0.651 g/cm2. LEFT FEMUR, TOTAL: Current: BMD 0.703 g/cm2, Z-score -0.8, T-score -2.4, osteopenia, 6.4% decrease from baseline (<5% change is not significant). Baseline: BMD 0.751 g/cm2. IDENTIFIED RISK FACTORS: Osteoporosis, low body weight, menopause. HISTORY OF FRACTURE: None listed. MEDICATIONS: Calcium supplements or multivitamin, vitamin D. MM/XR DEXA axial skeleton IMPRESSION: 1. DIAGNOSIS: Osteoporosis based on the lowest T-score value of -3.1 in the femoral neck applying World Health Organization criteria Labs:Adrenal Glands: A 1.3 x 1 cm lesion in the medial limb of the left adrenal gland is unchanged since 2013. No sx of [place] or pheo . Imaging characteristics suggest a benign adenoma. Workup for hypersecretion was negative with 24 hour urine for metanephrines and normetanephrines normal. [facility] Medical History Adrenal mass B12 deficiency Hiatal hernia Hypovitaminosis D Osteoporosis Pure hypercholesterolemia T4 vertebral fracture Surgical History History of breast biopsy Family History Father No problems noted. Mother No problems noted. Maternal Grandmother No problems noted. Social History (Updated 12/02/22 @ 15:51 by Samantha Phillips MD) Household Members: None Household Members Other:: roomate Housing: House Alcohol intake: former Patient Tobacco Use Status: Former Tobacco user Tobacco use type: Cigarette e-Cigarette/Vaping Use: Never Used Second Hand Smoke Exposure: No service: No Current occupational status: employed Cognitive needs: No Hearing needs: No Vision needs: Yes Physical Exam Vital Signs: BMI result Body Mass Index 24.4 Assessment & Plan Assessment & Plan (1) Osteoporosis: Code(s): M81.0 - Age-related osteoporosis without current pathological fracture Qualifiers: Osteoporosis type: age-related Presence of current pathological fracture: without current pathological fracture Qualified Code(s): M81.0 - Age-related osteoporosis without current pathological fracture Plan: This is 71-year-old white female with a history of osteoporosis and thoracic compression fractures. Secondary workup is negative Plan is to consider anabolic therapy should as teriparatide vs Tymlos vs Evenity considering compression fractures and history of severe osteoporosis placing patient at the highest risk of fracture. (2) Adrenal mass: Code(s): E27.8 - Other specified disorders of adrenal gland Plan: Adrenal masses longstanding but appears to be enhancing in 2014. Repeat CT scan with adrenal protocol showed mass to have benign characteristics. Dexamethasone suppression test was normal. Workup for pheochromocytoma including 24 hour urine for metanephrines normetanephrines were normal The plan is to continue to observe Coding Level of Care Code Est Pt Level 3 (01032) Diagnoses Osteoporosis M81.0 Osteoporosis type: age-related Presence of current pathological fracture: without current pathological fracture Adrenal mass E27.8
== END 2022-12-09 10:04 | disposition home or self-care (01) ==
PROVIDERS: PCP Internal Medicine; Referring Provider Internal Medicine; Visit Provider Internal Medicine Endocrinology, Diabetes & Metabolism
DX: M81.0 Age-related osteoporosis without current pathological fracture (principal); E27.8 Other specified disorders of adrenal gland
CPT/HCPCS: 99213

== ENCOUNTER → 2022-12-09 09:14 | Outpatient (BNVA) | payer OTHER, SELFPAY | PROVIDERS: Visit Provider Internal Medicine Endocrinology, Diabetes & Metabolism ==

== ENCOUNTER 2023-01-20 11:56 | Emergency (ER) | payer OTHER, SELFPAY ==
--- NOTE | ~2023-01-20 | XR_ITS ---
EXAMINATION: XR CHEST CLINICAL INFORMATION: Chest pain COMPARISON: CT angiogram chest 06/27/2021 TECHNIQUE: 2 views of the chest were obtained. FINDINGS: The heart and pulmonary vessels appear normal. No infiltrates, effusions or lung masses are seen. Degenerative changes are present in the spine along with a marked compression fracture involving T8 with anterior wedging, unchanged from 06/27/2021 CT scan. XR/XR chest 2V IMPRESSION: No acute intrathoracic disease. Old T8 compression fracture.
--- NOTE | 2023-01-20 12:07 | ECG_ITS ---
Test Reason : CHEST PAIN Blood Pressure : / mmHG Vent. Rate : 087 BPM Atrial Rate : 087 BPM P-R Int : 134 ms QRS Dur : 078 ms QT Int : 322 ms P-R-T Axes : 053 -16 006 degrees QTc Int : 387 ms Normal sinus rhythm Nonspecific ST abnormality Abnormal ECG When compared with ECG of 01-AUG-2021 11:38, No significant change was found Referred By: Generic ED Physician Electronically Signed By:TRICIA RINALDI
[2023-01-20 12:58] VITALS: BP 128/77; PULSE 91; RESP 16; TEMP 36.9; O2SAT 99; BMI 24.5
--- NOTE | 2023-01-20 12:58 | ED.GENADULT ---
HPI - General Adult General Chief complaint: Chest Pain Stated complaint: pain under breast Time Seen by Provider: 01/20/23 17:02 Source: patient Mode of arrival: ambulatory Limitations: no limitations History of Present Illness HPI narrative: Patient is a 72-year-old female who presents emergency department for evaluation of chest pain. Reports onset approximately 5 days ago, occurring at least once or twice daily lasting a few moments at a time. It is localized to the left substernal region/beneath the left breast. She reports a history of similar pain in the past but notes an increased frequency and states different quality but is unable to specify. Currently denies pain at this time. Denies headache, dizziness, lightheadedness, neck pain, shortness of breath, difficulty breathing, cough, nausea, vomiting, abdominal pain. Related Data Home Medications Medication Instructions Recorded Confirmed ascorbic acid (vitamin C) 1,000 mg 500 mg PO DAILY 10/15/21 12/02/22 tablet biotin 1 mg capsule 1 mg PO DAILY 10/15/21 12/02/22 calcium carbonate 600 mg-vitamin cap PO 10/15/21 12/02/22 D3 12.5 mcg (500 unit) capsule garlic 1,000 mg capsule 1,000 mg PO DAILY 10/15/21 12/02/22 mecobalamin (vitamin B12) 1,000 1,000 mcg PO DAILY 10/15/21 12/02/22 mcg chewable tablet owcgodxt-ugc-tdwgy acid 0.4 1 tab PO DAILY 10/15/21 12/02/22 mg-lycopene 300 mcg-lutein 250 mcg tablet (Complete Multivitamin Adult 50 Plus) omega-3 fatty acids 1,000 mg 1,000 mg PO DAILY 10/15/21 12/02/22 capsule psyllium husk 0.4 gram capsule 0.8 g PO DAILY 10/15/21 12/02/22 (Daily Fiber) vit C 250 mg-vit E 90 mg-zinc 40 2 tab PO ONCE 10/15/21 12/02/22 mg-copper 1 gb-slirmr-qkxwnv capsule (PreserVision AREDS-2) cholecalciferol (vitamin D3) 50 50 mcg PO DAILY 02/06/22 12/02/22 mcg (2,000 unit) capsule glucosamine sulfate 500 mg tablet 500 mg PO QID 02/06/22 12/02/22 (Glucosamine) Allergies Allergy/AdvReac Type Severity Reaction Status Date / Time No Known Allergies Allergy Verified 01/20/23 12:58 [No Known Allergies*] [facility] Past Medical History Attestation statement: The following information was validated with the patient. Source: old records reviewed Medical History Adrenal mass T4 vertebral fracture Hiatal hernia Pure hypercholesterolemia B12 deficiency Hypovitaminosis D Osteoporosis Surgical History History of breast biopsy Family History Family History Father No problems noted. Mother No problems noted. Maternal Grandmother No problems noted. Social History Social History Household Members: None Household Members Other:: roomate Housing: House Alcohol intake: former Patient Tobacco Use Status: Former Tobacco user Tobacco use type: Cigarette e-Cigarette/Vaping Use: Never Used Second Hand Smoke Exposure: No Advance Directives: No Advance Directives Information Provided: No service: No Current occupational status: employed Cognitive needs: No Hearing needs: No Vision needs: Yes Physical Exam ED Vital Signs: Vital Signs - 24 hr 01/20/23 12:58 01/20/23 17:34 Temperature 98.5 F Pulse Rate 91 86 Respiratory Rate 16 18 Blood Pressure 128/77 144/83 H Pulse Oximetry 99 98 Oxygen Delivery Method Room Air Room Air BMI result Body Mass Index 24.5 Appearance: Alert.?Oriented to person, place and time. No acute distress.?Normal affect. Eyes: Pupils equal, round and reactive to light.? ENT: Pharynx normal.?? Neck: Normal inspection.? Neck supple.?? CVS: Heart sounds normal. Normal heart rate and rhythm.? Pulses normal.?? Respiratory: No respiratory distress.? Lung sounds clear to auscultation bilaterally?? Abdomen: Soft and non-tender. Normoactive bowel sounds. No pulsatile mass.?? Skin: Skin warm and dry.? Normal skin color.? Extremities: No lower extremity edema.? No calf ttp? Neuro: Moves all extremities spontaneously. Sensation intact bilaterally. No focal neuro deficits. Ambulates with normal steady gait. Course Course Course Narrative: RME: 72yo F w/PMHx CAD, Adrenal mass, HLD, osteoporosis, c/o intermittent L sided lower substernal CP/beneath L breast x5 days. Denies SOB, N/V, abd pain EKG, Labs, CXR ordered Full HPI, ROS and PE to be performed by primary ED provider. Reevaluation(s) Reevaluation #1: EKG with nonspecific ST abnormality consistent with prior EKG no acute ischemic findings. Troponin negative x2. Atypical chest pain. Advised outpatient follow-up with PCP/cardiology. Reviewed worrisome signs and symptoms that would warrant re-evaluation. All questions answered. Stable for discharge. Time: 18:30 Medical Decision Making Medical Decision Making [facility] Narrative: Patient is a 72-year-old female past medical history of hyperlipidemia, osteoporosis, T4 compression fracture presenting to emergency department for evaluation of chest pain as per HPI. At the time my examination she is overall well-appearing, nontoxic, afebrile she is normotensive in without tachycardia. No respiratory distress. Upon review of her records she was seen by cardiology in October of 2019 to for abnormal EKG changes during stress test; at the time EKG was nondiagnostic for ischemia and echo revealing normal LV function without regional wall motion abnormality or valvular abnormality. She has had a chest CT which is revealed coronary calcification, most recent LDL in February 2022 >100. Will obtain CBC to evaluate for leukocytosis/ anemia, CMP and lipase to evaluate for abnormal electrolytes /abnormal renal function/ abnormal hepatic/biliary function, EKG and troponin to evaluate for ischemia/ACS. Chest x-ray to evaluate for consolidation/ infiltrate/ mass/ pulmonary congestion. Differential Diagnosis Differential Diagnoses: The differential diagnosis associated with the presentation includes (ACS, atypical chest pain, GERD, gastritis, muscular pain with costochondritis) Admission/Observation Consideration of admission/observation: Escalation of care including admission/observation considered (I considered admission for chest pain, see course narrative for further detail) Lab Data [facility] Lab Attestation statement: I reviewed the patient's lab results. CBC is without leukocytosis or anemia. CMP is unremarkable. Initial troponin negative. 01/20/23 13:16 01/20/23 13:16 Labs: Lab Results 01/20/23 01/20/23 Range/Units 13:16 17:34 WBC 6.9 (4.8-10.8) X10*3/uL RBC 4.15 L (4.20-5.50) X10*6/uL Hgb 13.2 (12.0-16.0) g/dl Hct 39.6 (37.0-47.0) % MCV 95.4 (80.0-98.0) fL MCH 31.8 (27.0-33.0) pg MCHC 33.3 (31.0-35.0) g/dl RDW 12.4 (11.0-16.0) % Plt Count 202 (160-400) X10*3/uL MPV 9.8 (9.4-12.3) fL Immature Gran % (Auto) 0.1 (0.0-0.4) % Neut % (Auto) 78.0 H (45-73) % Lymph % (Auto) 13.1 L (20-40) % [place] % (Auto) 7.4 (2-11) % Eos % (Auto) 1.0 (0-4) % Baso % (Auto) 0.4 (0-2) % Lymph # (Auto) 0.9 L (1.2-4.9) X10*3/uL [place] # (Auto) 0.5 (0.1-1.2) X10*3/uL Eos # (Auto) 0.1 (0.0-0.4) X10*3/uL Baso # (Auto) 0.0 (0.0-0.2) X10*3/uL Abs Immat Gran (auto) 0.01 (0.00-0.03) X10*3/uL Absolute Neuts (auto) 5.4 (2.0-8.3) x10*3/uL Absolute Nucleated RBC 0.000 (0.0-0.012) X10*3/uL Nucleated RBC % (auto) 0.0 (0.0-0.2) /100WBC Sodium 140 (135-145) mmol/L Potassium 4.1 (3.3-5.1) mmol/L Chloride 105 (96-108) mmol/L Carbon Dioxide 24 (22-29) mmol/L Anion Gap 15 (12-20) BUN 9 (9-16) mg/dL Creatinine 0.74 (0.5-1.4) mg/dL Estim Creat Clear Calc 55.1 Estimated GFR > 60 Random Glucose 99 (60-115) mg/dL Calcium 9.3 (8.4-10.2) mg/dL Total Bilirubin 0.9 (0.0-1.0) mg/dL Direct Bilirubin 0.3 (0.0-0.5) mg/dL AST 19 (5-31) U/L ALT 10 (0-31) U/L Alkaline Phosphatase 42 (39-117) U/L Troponin I High Sens < 2.7 < 2.7 (<3.5-17.0) ng/L Total Protein 7.2 (6.5-8.0) g/dL Albumin 4.3 (3.5-5.0) g/dL Lipase 17 (8-78) U/L Independent Interpretation I performed an independent interpretation of an: EKG and Plain X-Ray (I have personally interpreted chest x-ray and agree with radiologist impression, no evidence of consolidation or infiltrate.) Interpretation: Rate: 87 Rhythm:? Normal sinus rhythm [place]:? Normal Normal P waves.? Normal DAVID.?? Normal QRS complex.?? ST T wave :??Nonspecific change, no ST elevation qTC: Normal; 381 prior studies:? July 2021 The study has been interpreted contemporaneously by me. Radiology Impression Discussion of test interpretation with radiology: I have reviewed the radiologist's reading. Radiologist Impression: XR/XR chest 2V IMPRESSION: No acute intrathoracic disease. Old T8 compression fracture. External Record Review External record reviewed: Office record, Prior outpatient labs and Prior outpatient radiology As noted above Discharge Plan Discharge Clinical Impression: Atypical chest pain Patient Disposition: Home, Self-Care Instructions: Chest Pain (ED) Additional Instructions: Contact your primary care provider to arrange for a follow-up visit. You may return back to emergency department any new or worsening symptoms or concerns. As discussed your chest x-ray was negative. Your troponin; a heart marker was negative twice, This is reassuring. Prescriptions: No Action PreserVision AREDS-2 250-90-40-1 mg capsule 2 tab PO ONCE calcium carbonate-vitamin D3 600 mg-12.5 mcg (500 unit) capsule PO Complete MV Adult 50 Plus 0.4 mg-300 mcg- 250 mcg tablet 1 tab PO DAILY mecobalamin (vitamin B12) 1,000 mcg tablet,chewable 1,000 mcg PO DAILY omega-3 fatty acids 1,000 mg capsule 1,000 mg PO DAILY garlic 1,000 mg capsule 1,000 mg PO DAILY biotin 1 mg capsule 1 mg PO DAILY ascorbic acid (vitamin C) 1,000 mg tablet 500 mg PO DAILY psyllium husk [Daily Fiber] 0.4 gram capsule 0.8 g PO DAILY glucosamine sulfate [Glucosamine] 500 mg tablet 500 mg PO QID Rx Instructions: give with meal/snack cholecalciferol (vitamin D3) 50 mcg (2,000 unit) capsule 50 mcg PO DAILY Referrals: Samantha Aguilar MD [Primary Care Provider] -
[2023-01-20 13:19] LABS: MANUAL DIFF FLAG NO
[2023-01-20 13:21] LABS: Basophils Percent Auto 0.4 % (0-2); Eosinophils Absolute Auto 0.1 X10*3/uL (0.0-0.4); Hematocrit 39.6 % (37.0-47.0); Hemoglobin 13.2 g/dl (12.0-16.0); Imm Gran Abs Auto 0.01 X10*3/uL (0.00-0.03); Imm Gran Pct Auto 0.1 % (0.0-0.4); Lymphocytes Absolute Auto 0.9 X10*3/uL (1.2-4.9); Lymphocytes Percent Auto 13.1 % (20-40); Mean Corpuscular HGB Conc 33.3 g/dl (31.0-35.0); Mean Corpuscular Hemoglobin 31.8 pg (27.0-33.0); Mean Corpuscular Volume 95.4 fL (80.0-98.0); Mean Platelet Volume 9.8 fL (9.4-12.3); Monocytes Absolute Auto 0.5 X10*3/uL (0.1-1.2); Monocytes Percent Auto 7.4 % (2-11); Neutrophils Absolute Auto 5.4 x10*3/uL (2.0-8.3); Platelet Count 202 X10*3/uL (160-400); Red Blood Count 4.15 X10*6/uL (4.20-5.50); Red Cell Distribution Width 12.4 % (11.0-16.0); White Blood Count 6.9 X10*3/uL (4.8-10.8)
[2023-01-20 14:07] LABS: Troponin-I High Sensitivity < 2.7 ng/L (<3.5-17.0)
[2023-01-20 14:08] LABS: Alanine Aminotransferase 10 U/L (0-31); Albumin Level 4.3 g/dL (3.5-5.0); Alkaline Phosphatase 42 U/L (39-117); Anion Gap 15 (12-20); Aspartate Amino Transferase 19 U/L (5-31); Bilirubin Direct 0.3 mg/dL (0.0-0.5); Bilirubin Total 0.9 mg/dL (0.0-1.0); Blood Urea Nitrogen 9 mg/dL (9-16); Calcium 9.3 mg/dL (8.4-10.2); Carbon Dioxide 24 mmol/L (22-29); Chloride 105 mmol/L (96-108); Creatinine Clr Calc Pharmacy 55.1; Estimated Glomerular Filt Rate > 60; Glucose Random 99 mg/dL (60-115); Lipase 17 U/L (8-78); Potassium 4.1 mmol/L (3.3-5.1); Sodium 140 mmol/L (135-145); Total Protein 7.2 g/dL (6.5-8.0)
[2023-01-20 17:34] VITALS: BP 144/83; PULSE 86; RESP 18; O2SAT 98
[2023-01-20 18:05] LABS: Troponin-I High Sensitivity < 2.7 ng/L (<3.5-17.0)
== END 2023-01-20 18:46 | disposition home or self-care (01) ==
PROVIDERS: Nurse Practitioner Family; Physician Assistant; Emergency Provider Emergency Medicine; PCP Internal Medicine
DX: R07.89 Other chest pain (principal); Z87.891 Personal history of nicotine dependence; Z79.899 Other long term (current) drug therapy
CPT/HCPCS: 36415; 71046; 80048; 80076; 83690; 84484; 85025; 93005; 99283; 99284

== ENCOUNTER 2023-02-16 11:55 | Outpatient (AMB) | payer OTHER, SELFPAY ==
--- NOTE | 2023-02-16 11:59 | A.OFFVIS_ITS ---
Intake Vital Signs 02/16/23 12:00 Height 5 ft Weight 125 lb BMI 24.4 BP 122/63 Blood Pressure Location Lt brachial Position Sitting Pulse 98 Intake Visit Reasons: Due for Colonoscopy Intake Note: Patient follow up for 3rd pre colonoscopy screening. Patient denies any GI issues. 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 Required: No Accompanied by: Self / Same As Patient Allergies No Known Allergies [No Known Allergies*] Allergy (Verified 02/16/23 11:58) Medication List - Last Reconciled 02/16/23 by Dee Dee Eastman PA-C ascorbic acid (vitamin C) 500 mg PO DAILY biotin 1 mg PO DAILY calcium carbonate-vitamin D3 600 mg-12.5 mcg (500 unit) caps PO cholecalciferol (vitamin D3) 50 mcg PO DAILY garlic 1,000 mg PO DAILY glucosamine sulfate (Glucosamine) 500 mg PO QID mecobalamin (vitamin B12) 1,000 mcg PO DAILY jjzkunkd-jmw-EZ-lycopen-lutein 0.4 mg-300 mcg- 250 mcg (Complete Multivitamin Adult 50 Plus) 1 tab PO DAILY omega-3 fatty acids 1,000 mg PO DAILY psyllium husk (Daily Fiber) 0.8 grams PO DAILY vit C,E-Dw-thdkg-lutein-zeaxan 250-90-40-1 mg (PreserVision AREDS-2) 2 tabs PO ONCE HPI HPI Comments History of Present Illness Details 72-year-old female due for 3 rd screenin g colonoscopy she has never had polyps She has no GI complaints Bowels are normal She has a good appetite No nausea, vomiting, hematemesis, hematochezia fever chills PFSH Medical History Adrenal mass T4 vertebral fracture Hiatal hernia Pure hypercholesterolemia B12 deficiency Hypovitaminosis D Osteoporosis Surgical History History of breast biopsy Family History Father No problems noted. Mother No problems noted. Maternal Grandmother No problems noted. Social History Household Members: None Household Members Other:: roomate Housing: House Alcohol intake: former Patient Tobacco Use Status: Former Tobacco user Tobacco use type: Cigarette e-Cigarette/Vaping Use: Never Used Second Hand Smoke Exposure: No service: No Current occupational status: employed Cognitive needs: No Hearing needs: No Vision needs: Yes Review of Systems Const All systems reviewed & are unremarkable except as noted in HPI and below Card Denies chest pain and Denies dyspnea Resp Denies dyspnea GI Denies abdominal pain, Denies hematochezia, Denies change in bowel habits, Denies nausea and Denies vomiting Physical Exam Vital Signs: Last Vital Signs Pulse 98 02/16/23 12:00 BP 122/63 02/16/23 12:00 BMI result Body Mass Index 24.4 Const General: cooperative, healthy appearing, comfortable and no acute distress Orientation/consciousness: patient oriented x3 Limitations: no limitations Eyes Sclerae: sclerae normal Resp Effort & Inspection: normal respiratory effort and able to speak in complete sentences Auscultation: clear to auscultation bilaterally, no rales, no rhonchi and no wheezes Cardio Rate: regular rate Rhythm: regular rhythm Heart sounds: S1 normal heart sound present and S2 normal heart sound present GI Palpation (GI): Soft to palpation and nontender Auscultation: normal bowel sounds Skin General skin exam: no rashes or lesions noted Neuro General: patient oriented x3 Extrem General: Yes full ROM Psych Appearance: grossly normal and well kempt Mental Status: mental status grossly normal Speech and movement: Normal speech and movement present and Clear speech present Affect: normal affect Attitude: cooperative Thought process: Normal thought process present Thought content: Normal thought content present Insight: Good insight present (Psych) Judgement: Good judgement present (Psych) Results Reviewed Results Reviewed: 2017- Dr. Betancourt- colonoscopy- no polyps 2019- EGD- Dr. Garcia- Assessment & Plan Assessment & Plan (1) Screen for colon cancer: Comment: Pleasant 72-year-old female- H&P, discussed procedure indication, prep, ETC patient requesting colonoscopy to be done by Dr. Acuna- We explained he is not part of our practice She prefers to return to him for procedure. Code(s): Z12.11 - Encounter for screening for malignant neoplasm of colon Plan: Accommodate patient per her request She will navigate the appointment Plan Send back to primary electrical and instrument mechanic per her request-certainly understand Patient Instructions: Pt prefers to see Dr. Garcia- for colonoscopy She is aware she will schedule appointment with Dr. Garcia- There are no major barriers to understanding identified Coding Level of Care Code New Pt Level 3 (14274) Diagnoses Screen for colon cancer Z12.11 Time Spent (min) 30
[2023-02-16 12:00] VITALS: BP 122/63; PULSE 98; BMI 24.4
== END 2023-02-16 13:18 | disposition home or self-care (01) ==
PROVIDERS: PCP Internal Medicine; Visit Provider Physician Assistant
DX: Z01.818 Encounter for other preprocedural examination (principal); Z12.11 Encounter for screening for malignant neoplasm of colon
CPT/HCPCS: S0285

== ENCOUNTER → 2023-02-16 11:55 | Outpatient (BNVA) | payer OTHER, SELFPAY | PROVIDERS: PCP Internal Medicine; Visit Provider Physician Assistant ==

== ENCOUNTER 2024-08-01 13:47 | Outpatient (AMB) | payer OTHER, MEDICARE, SELFPAY ==
--- NOTE | 2024-08-01 13:54 | MHC.PC.OV ---
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 Accompanied by: Self / Same As Patient Allergies No Known Allergies [No Known Allergies*] Allergy (Verified 08/01/24 14:12) Medication List - Last Reconciled 08/01/24 by Samantha Phillips MD ascorbic acid (vitamin C) 500 mg PO DAILY biotin 1 mg PO DAILY calcium carbonate-vitamin D3 600 mg-12.5 mcg (500 unit) caps PO cholecalciferol (vitamin D3) 50 mcg PO DAILY garlic 1,000 mg PO DAILY glucosamine sulfate (Glucosamine) 500 mg PO QID mecobalamin (vitamin B12) 1,000 mcg PO DAILY bzxwduga-sfs-QL-lycopen-lutein 0.4 mg-300 mcg- 250 mcg (Complete Multivitamin Adult 50 Plus) 1 tab PO DAILY omega-3 fatty acids 1,000 mg PO DAILY psyllium husk (Daily Fiber) 0.8 grams PO DAILY vit C,I-Cx-jkkoc-lutein-zeaxan 250-90-40-1 mg (PreserVision AREDS-2) 2 tabs PO ONCE Tobacco use date assessed: 08/01/24 Fall risk assessment: No Falls in past year Last assessed Fall Risk: 08/01/24 Dental Screening Dental Screen Date: 08/01/24 Did you have a dental visit in the last 12 months?: No Did you have a dental problem in the last 6 months where you did not have access to dental care?: No Was dental information given to patient?: Patient has dentist HPI HPI Comments History of Present Illness Details The patient is a 73-year-old female presenting for an annual physical examination. During the visit, several chronic and preventative health issues were discussed. The patient has a known history of osteoporosis, previously managed under Dr. Nagy, with the last bone density scan conducted in 2020. She expresses anxiety regarding osteoporosis treatment, specifically concerning potential side effects of advertised medications. The patient mentions having developed fears associated with medical procedures, which have led her to avoid follow-up appointments, including monitoring of an adrenal nodule that was noted previously. Regarding health maintenance, the patient had a mammogram in 2021, but colon cancer screening is overdue, with the last gastroenterology visit in 2018. She acknowledges the fear of undergoing procedures like colonoscopy and inquires about non-invasive options such as Cologuard for colon cancer screening. Vaccination history includes COVID and influenza vaccines, all administered at an external pharmacy, but she has not received pneumonia or Tdap vaccines, with a misunderstanding about eligibility for the RSV vaccine due to age criteria. The patient also reports a possible height loss. Nutritionally, the patient takes multiple supplements, including high doses of vitamin C, biotin, calcium with vitamin D, garlic, vitamin B12, omega-3, psyllium, vitamin C, E, zinc, copper, and glucosamine, although she has stopped the latter. Concerns about circulation were noted, with the patient experiencing cold extremities and being advised to consider low-dose aspirin potentially beneficial for circulatory issues. There are no known medication allergies, and she is compliant with her vitamin regimen except for reducing vitamin C intake from multiple sources. - Bone density test due, last conducted in 2020 - Mammogram in 2021, next one due - Overdue for colon cancer screening, last seen in gastroenterology in 2018 - Pneumonia vaccine recommended due to age but not yet received - Tdap vaccine recommended but not yet received - COVID and flu vaccines administered at an outside pharmacy [facility] Medical History (Updated 08/01/24 @ 14:44 by Samantha Phillips MD) Adrenal mass T4 vertebral fracture Hiatal hernia Pure hypercholesterolemia B12 deficiency Hypovitaminosis D Osteoporosis Surgical History History of breast biopsy Family History Father No problems noted. Mother No problems noted. Maternal Grandmother No problems noted. Social History Household Members: None Household Members Other:: roomate Housing: House Alcohol intake: former Patient Tobacco Use Status: Former Tobacco user Tobacco use type: Cigarette e-Cigarette/Vaping Use: Never Used Second Hand Smoke Exposure: No service: No Current occupational status: retired Cognitive needs: No Hearing needs: No Vision needs: Yes Questionnaire PHQ-9 Over the last 2 weeks, how often have you been bothered by any of the following problems? 1. Little interest or pleasure in doing things: not at all 2. Feeling down, depressed, or hopeless: not at all 3. Trouble falling or staying asleep, or sleeping too much: not at all 4. Feeling tired or having little energy: not at all 5. Poor appetite or overeating: not at all 6. Feeling bad about yourself - or that you are a failure or have let yourself or your family down: not at all 7. Trouble concentrating on things, such as reading the newspaper or watching television: not at all 8. Moving or speaking so slowly that other people could have noticed. Or the opposite - being so fidgety or restless that you have been moving around a lot more than usual: not at all 9. Thoughts that you would be better off or of hurting yourself in some way: not at all Total score: 0 Depression Screening Interpretation: Negative Depression Screening Done: Yes 25166 - PHQ-9 Billing: Yes Source: Developed by Drs. Dimitrios Peterson, Avelina Grace, Arthur Molina and colleagues, with an educational tasneem from [employer]. Thrive Questionnaire Date Thrive assessed: 08/01/24 I am a: Patient What is your living situation today?: I have a steady place to live Within the past 12 months, did the food you bought not last and you didn't have the money to get more?: Never true Within the past 12 months, did you worry whether your food would run out before you got money to buy more?: Never true Do you have trouble paying for medicines?: No Do you have trouble getting transportation to medical appointments?: No Do you have trouble paying your heating and electricity bill?: No Do you have trouble taking care of your child, family member or friend?: No Do you have trouble with day-to-day activities such as bathing, preparing meals, shopping, managing finances, etc.?: No Are you currently unemployed and looking for a job?: No Are you interested in more education?: No Please select the resources that you would like help with: None Currently or been in a relationship where the following occur: No concerns reported THRIVE Score: 0 AUDIT C Alcohol Use Questionnaire (AUDIT-C) 1. How often do you have a drink containing alcohol?: Never Total Score: 0 Score Reviewed/Action Taken: No NED-7 AMB Questionnaire NED-7 Date NED - 7 assessed: 08/01/24 Feeling nervous, anxious, or on edge: 0 = Not at all Not being able to stop or control worryin = Not at all Worrying too much about different things: 0 = Not at all Trouble relaxin = Not at all Being so restless that it is hard to sit still: 0 = Not at all Becoming easily annoyed or irritable: 0 = Not at all Feeling afraid as if something awful might happen: 0 = Not at all Total NED-7 score (0-4 normal; 5-9 mild; 10-14 moderate; 15-21 severe): 0 Source: Developed by Drs. Dimitrios Peterson, Avelina Grace, Arthur Molina and colleagues, with an educational tasneem from [employer]. NED-7 Assessment Billing NED-7 Assessment Tool: NED-7 Assessment 24217 Review of Systems Const All systems reviewed & are unremarkable except as noted in HPI and below Card Denies chest pain at rest, Denies chest pain with activity, Denies edema, Denies irregular heart rhythm, Denies claudication, Denies dyspnea, Denies dyspnea on exertion, Denies orthopnea, Denies paroxysmal nocturnal dyspnea and Denies slow heart rate Resp Denies cough, Denies dyspnea and Denies dyspnea on exertion GI Denies abdominal pain, Denies change in bowel habits, Denies excessive flatus, Denies nausea and Denies vomiting Denies urinary incontinence, Denies urinary hesitancy and Denies urinary urgency Musc Denies atrophy, Denies deformity and Denies limited range of motion Skin/Breast Denies bleeding lesions, Denies changing lesions and Denies rash Physical exam (Primary Care) Vital Signs: Last Vital Signs BP 118/74 08/01/24 13:56 BMI result Body Mass Index 22.3 Tobacco/Smoking Status: Tobacco use Status Tobacco use date assessed 08/01/24 08/01/24 14:02 Patient Tobacco Use Status Former Tobacco user 08/01/24 14:02 Tobacco use type Cigarette 08/01/24 14:02 e-Cigarette/Vaping Use Never Used 08/01/24 14:02 PHQ-9: PHQ-9 Score PHQ-9: Total score 0 08/01/24 14:33 Depression Screening Interpretation: Negative Thrive Assessment: Date of Thrive Assessment Date Thrive assessed 08/01/24 08/01/24 14:02 Currently or been in a relationship where the following occur: No concerns reported HENMT Head: Yes normal to inspection, Yes normocephalic and Yes atraumatic Ears: external ears normal Eyes General: appearance normal, both eyes and all related structures Eyelids: Yes eyelids normal Conjunctivae: conjunctivae normal Neck Neck: Yes normal visual inspection and Yes supple Resp Effort & Inspection: normal respiratory effort Auscultation: clear to auscultation bilaterally Cardio Jugular venous distension: no JVD Rate: regular rate Rhythm: regular rhythm Heart sounds: S1 normal heart sound present and S2 normal heart sound present GI Inspection: Yes normal to inspection Palpation (GI): Soft to palpation and nontender Auscultation: normal bowel sounds Skin General skin exam: no rashes or lesions noted Neuro General: no focal motor deficits Extrem General: Yes full ROM Psych Appearance: grossly normal Immunizations pneumoc 20-vickie conj-dip cr(PF) 0.5 mL IM syringe Performing Provider: Samantha Phillips MD [facility] Administered by: MARSHAL Heredia on 08/01/24 14:33 Dose Route Admin Location Dispensed Lot Number Expiration Date [facility] Doctor Of Veterinary Medicine 0.5 mL IM Left Deltoid 0.5 mL [id number] 05/20/25 [employer] VIS Given Date VIS Provided VIS Publication Date 08/01/24 Single Vaccine 22 Eligibility Eligibility Date Funding Source Not [facility] Eligible 08/01/24 Private Coding Level of Care Code Est Pt Level 3 (39683) Est Pt Prev Care >65y(66879) Diagnoses Encounter for physical examination Z00.00 Adrenal mass E27.8 Additional Codes NED-7 Assessment Billing - NED-7 Assessment Tool: NED-7 Assessment 72093 ([id number]) PHQ-9 - 41842 - PHQ-9 Billing: Yes ([id number]) Time Spent (min) 33 Assessment & Plan Assessment & Plan (1) Encounter for physical examination: Code(s): Z00.00 - Encounter for general adult medical examination without abnormal findings Category: Medical (2) Adrenal mass: Code(s): E27.8 - Other specified disorders of adrenal gland Category: Medical Plan The patient will pursue necessary health maintenance measures, including repeat bone density testing due to osteoporosis and considerations for non-invasive colon cancer screening options. Vaccinations are discussed, emphasizing the importance of pneumonia and Tdap, given the patient's history. Addressing circulation concerns with low-dose aspirin is considered, alongside adjusting vitamin intake specifically by reducing vitamin C. The endocrinology consultation to review the previously noted adrenal nodule is advised. Overall, health education addresses the patient's procedural anxiety and misunderstandings about vaccination eligibility. Patient was informed and verbally consented to the use of an ambient scribe for clinic note documentation during this visit. I discussed the importance of regular health maintenance with the patient, emphasizing the need for a repeat bone density scan and addressing overdue colon cancer screening through non-invasive options if anxious about invasive procedures. The significance of pneumonia and Tdap vaccinations was highlighted given her age and current health status. We discussed a plan to adjust her supplement regimen, particularly to reduce vitamin C intake from multiple sources, and offered low-dose aspirin for circulation concerns. I reviewed the necessity of follow-up with endocrinology for her adrenal nodule and advised returning for scheduled screenings and vaccinations. Consent discussions for proposed interventions were fully addressed. Patient was encouraged to seek care promptly if new symptoms arise. Orders: Orders MM tomosynthesis screening BI Today Z12.31 - Encounter for screening mammogram for malignant neoplasm of breast Pneumococcal 20 Immunization Today Z23 - Encounter for immunization XR DEXA axial skeleton Today Z78.0 - Asymptomatic menopausal state Lipid Panel Today Z00.00 - Encounter for general adult medical examination without abnormal findings Comprehensive [place]. Panel Fast Today Z00.00 - Encounter for general adult medical examination without abnormal findings Vitamin B12 and Folate Today E53.8 - Deficiency of other specified B group vitamins Vitamin D 25-OH Total Today E55.9 - Vitamin D deficiency, unspecified Referrals Endocrinology Referral E27.8 - Other specified disorders of adrenal gland Cologuard Test Z12.11 - Encounter for screening for malignant neoplasm of colon, Z12.12 - Encounter for screening for malignant neoplasm of rectum Patient Instructions: - Schedule a bone density scan. - Consider Cologuard for colon cancer screening. - Receive pneumonia and Tdap vaccinations. - Reduce vitamin C intake to avoid excess. - Consider low-dose aspirin for circulation with provider consultation. - Follow up with endocrinology for the adrenal nodule. - Report new or worsening symptoms immediately. - Maintain regular health check-ups.
[2024-08-01 13:56] VITALS: BP 118/74; BMI 22.3
== END 2024-08-01 14:34 | disposition home or self-care (01) ==
LOC: HO.HMCH 13:47
PROVIDERS: PCP Internal Medicine; Visit Provider Internal Medicine
DX: Z00.00 Encounter for general adult medical examination without abnormal findings (principal); E27.8 Other specified disorders of adrenal gland; Z23 Encounter for immunization

== ENCOUNTER → 2024-08-01 13:47 | Outpatient (BNVA) | payer MEDICARE, SELFPAY | PROVIDERS: PCP Internal Medicine; Visit Provider Internal Medicine | DX: Z00.00 Encounter for general adult medical examination without abnormal findings (principal); Z23 Encounter for immunization; E27.8 Other specified disorders of adrenal gland | CPT/HCPCS: 90471; 90677; 96127 ==

== ENCOUNTER 2024-09-05 11:08 | Outpatient (AMB) | payer MEDICARE, SELFPAY ==
--- NOTE | 2024-09-05 11:10 | MHC.OFFVIS ---
Vital Signs 09/05/24 11:12 Height 5 ft Weight 112 lb 14.027 oz BMI 22.0 BP 106/72 Blood Pressure Location Lt brachial Position Sitting Pulse 86 Pulse Source Pulse Oximeter Pulse Oximetry (%) 97 Oxygen Delivery Method Room Air Intake Visit Reasons: Other specified disorders of adrenal gland Intake Note: Patient present today to re-establish care for Disorders of Adrenal Gland. 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 Accompanied by: Self / Same As Patient Allergies No Known Allergies [No Known Allergies*] Allergy (Verified 09/05/24 11:12) Medication List - Last Reconciled 09/05/24 by Dimitrios Nagy MD ascorbic acid (vitamin C) 500 mg PO DAILY biotin 1 mg PO DAILY calcium carbonate-vitamin D3 600 mg-12.5 mcg (500 unit) caps PO cholecalciferol (vitamin D3) 50 mcg PO DAILY garlic 1,000 mg PO DAILY glucosamine sulfate (Glucosamine) 500 mg PO QID mecobalamin (vitamin B12) 1,000 mcg PO DAILY tljvhfcu-fnp-WA-lycopen-lutein 0.4 mg-300 mcg- 250 mcg (Complete Multivitamin Adult 50 Plus) 1 tab PO DAILY omega-3 fatty acids 1,000 mg PO DAILY psyllium husk (Daily Fiber) 0.8 grams PO DAILY vit C,Q-Rv-ezmbu-lutein-zeaxan 250-90-40-1 mg (PreserVision AREDS-2) 2 tabs PO ONCE HPI Comments Details: 73 YO F is seen in consultation at the request of PCP for Osteoporosis. First diagnosed in 08/17/2017. History of pathologic fracture in T8 or ONJ. Has few servings of dietary calcium per day in the form of ice cream and cheese . Takes Calcium supplement 600 mg daily in divided doses. Takes 2500 IU of Vitamin D daily. Denies ever using PPI, anticoagulant, antiepileptic or glucocorticoid medication. Not Does weight bearing exercise Fracture history: T 8 compression fx Height loss: lost 3 inches [employer] history: menopause in 50s Denies history of Kidney stones: Denies family history of Osteoporosis or hip fracture. UTD on dental cleanings and does not sees dentist every 6 months. Has planned upcoming dental work or extractions. DXA dated 04/25/20 :FINDINGS: AP SPINE L1-L4: Current: BMD 1.028 g/cm2, Z-score 0.8, T-score -1.3, osteopenia, 1.2% decrease from baseline (<5% change is not significant). Baseline: BMD 1.041 g/cm2. LEFT FEMUR, NECK: Current: BMD 0.607 g/cm2, Z-score -1.2, T-score -3.1, osteoporosis. Baseline: BMD 0.651 g/cm2. LEFT FEMUR, TOTAL: Current: BMD 0.703 g/cm2, Z-score -0.8, T-score -2.4, osteopenia, 6.4% decrease from baseline (<5% change is not significant). Baseline: BMD 0.751 g/cm2. IDENTIFIED RISK FACTORS: Osteoporosis, low body weight, menopause. HISTORY OF FRACTURE: None listed. MEDICATIONS: Calcium supplements or multivitamin, vitamin D. MM/XR DEXA axial skeleton IMPRESSION: 1. DIAGNOSIS: Osteoporosis based on the lowest T-score value of -3.1 in the femoral neck applying World Health Organization criteria Labs:Adrenal Glands: A 1.3 x 1 cm lesion in the medial limb of the left adrenal gland is unchanged since 2013. No sx of Cushings or pheo . Imaging characteristics suggest a benign adenoma. Workup for hypersecretion was negative with 24 hour urine for metanephrines and normetanephrines normal. The patient is a 73-year-old female presenting with osteoporosis management. With a noted history of very low bone density and a past fracture, she requires ongoing assessment. She once took calcium and vitamin D supplements, which she has stopped. She denies symptoms like weight gain or sweating related to adrenal issues. A bone density test is planned soon. Her adrenal mass, stable for years, shows no concerning symptoms, following a benign imaging workup. The patient discussed a focus on obtaining calcium from dietary sources rather than supplements, emphasizing food sources. She likes to incorporate foods that are high in calcium into her meals to reach the recommended intake of 1200 mg per day, when supplements are not utilized. [facility] Medical History (Updated 08/01/24 @ 14:44 by Samantha Phillips MD) Adrenal mass T4 vertebral fracture Hiatal hernia Pure hypercholesterolemia B12 deficiency Hypovitaminosis D Osteoporosis Surgical History History of breast biopsy Family History Father No problems noted. Mother No problems noted. Maternal Grandmother No problems noted. Social History Household Members: None Household Members Other:: roomate Housing: House Alcohol intake: former Patient Tobacco Use Status: Former Tobacco user Tobacco use type: Cigarette e-Cigarette/Vaping Use: Never Used Second Hand Smoke Exposure: No service: No Current occupational status: retired Cognitive needs: No Hearing needs: No Vision needs: Yes Physical Exam Vital Signs: Last Vital Signs Pulse 86 09/05/24 11:12 BP 106/72 09/05/24 11:12 Pulse Ox 97 09/05/24 11:12 Oxygen Delivery Method Room Air 09/05/24 11:12 BMI result Body Mass Index 22.0 Const Other: No cushingoid features. Assessment & Plan Assessment & Plan (1) Osteoporosis: Code(s): M81.0 - Age-related osteoporosis without current pathological fracture Category: Medical Qualifiers: Osteoporosis type: age-related Presence of current pathological fracture: without current pathological fracture Qualified Code(s): M81.0 - Age-related osteoporosis without current pathological fracture Plan: This is 71-year-old white female with a history of osteoporosis and thoracic compression fractures. Secondary workup is negative Plan is to consider anabolic therapy should as teriparatide vs Tymlos vs Evenity considering compression fractures and history of severe osteoporosis placing patient at the highest risk of fracture. We will rediscuss this with the patient as she was lost to follow up previously and was going to get back to us regarding therapy 1. Osteoporosis The patient?s osteoporosis is a concern due to historically low bone density and previous fractures, emphasizing the need for anabolic therapy initiation, specifically with Evenity, given its potency to improve bone density followed by antiresorptive agents. Benefits and potential adverse effects were discussed, with the framework set for further evaluation via upcoming bone density testing and dietary adjustments for calcium and vitamin D intake. I impressed on the patient the need to get back to us in the next few weeks as to whether we proceed with the Evenity alternatively with Tymlos or Forteo I discussed in detail the current status and management options for osteoporosis with the patient. Given her low bone density and fracture risk, we deliberated anabolic therapies to increase bone density and the transition to antiresorptive treatment techniques thereafter. We evaluated the benefits and potential side effects, like injection-site reactions. I assured the patient of safety with no recent cardiac issues under current guidelines. We planned dietary adjustments to ensure adequate calcium and vitamin D intake, and I detailed a future bone density test for ongoing monitoring. Lastly, I confirmed the steady situation regarding her previous benign adrenal mass evaluation, with no further action required unless symptoms develop. - Continue with a balanced diet ensuring 1200 mg of calcium daily from food and supplements. - Take 2000 IU of vitamin D3 daily. - Schedule and attend the upcoming bone density test and mammogram in September. - Monitor for any symptoms like sweating, headache, or unusual weight gain and report immediately. - Consider the osteoporosis treatment options discussed and feel free to reach out if you have more questions or wish to proceed with therapy choices discussed. The patient had an opportunity to ask questions regarding treatment plan. The patient expressed understanding and agreement with the above treatment plan. Patient was informed and verbally consented to the use of an ambient scribe for clinic note documentation during this visit. (2) Adrenal mass: Code(s): E27.8 - Other specified disorders of adrenal gland Category: Medical Plan: Adrenal masses longstanding but appears to be enhancing in 2014. Repeat CT scan with adrenal protocol showed mass to have benign characteristics. Dexamethasone suppression test was normal. Workup for pheochromocytoma including 24 hour urine for metanephrines normetanephrines were normal The plan is to continue to observe. There was no need for any further workup or follow up considering previously negative workup and benign characteristics on imaging. Coding Level of Care Code Est Pt Level 3 (69398) Diagnoses Age-related osteoporosis without current pathological fracture M81.0 Osteoporosis type: age-related Presence of current pathological fracture: without current pathological fracture Adrenal mass E27.8
[2024-09-05 11:12] VITALS: BP 106/72; PULSE 86; O2SAT 97; BMI 22.0
== END 2024-09-05 11:50 | disposition home or self-care (01) ==
LOC: HO.ENCR 11:09
PROVIDERS: PCP Internal Medicine; Visit Provider Internal Medicine Endocrinology, Diabetes & Metabolism
DX: M81.0 Age-related osteoporosis without current pathological fracture (principal); E27.8 Other specified disorders of adrenal gland
CPT/HCPCS: 99213

== ENCOUNTER → 2024-09-05 11:08 | Outpatient (BNVA) | payer MEDICARE, SELFPAY | PROVIDERS: PCP Internal Medicine; Visit Provider Internal Medicine Endocrinology, Diabetes & Metabolism | DX: M81.0 Age-related osteoporosis without current pathological fracture (principal); E27.8 Other specified disorders of adrenal gland | CPT/HCPCS: 99212 ==

== ENCOUNTER 2024-11-22 13:56 | Outpatient (REF) | payer MEDICARE, SELFPAY ==
--- NOTE | ~2024-11-22 | MM_ITS ---
EXAMINATION: DXA BONE DENSITY AXIAL HISTORY: Z78.0 - Asymptomatic menopausal state TECHNIQUE: [employer] [employer] Dual energy absorptiometry (DEXA) of the lumbar spine, total left hip, and femoral neck was performed. COMPARISON: Comparison is made with the prior examination dated 04/25/2020. FINDINGS: The bone mineral density of the lumbar spine is 0.925 g/cm2, corresponding to a T-score of -2.0, and a Z-score of 0.2. This is indicative of osteopenia. This represents a BMD change of -7.0% compared to the prior exam. This is statistically significant. The bone mineral density of the left total hip is 0.603 g/cm2, corresponding to a T-score of -3.2, and a Z-score of -1.2. This is indicative of osteoporosis. This represents a BMD change of -14.2% compared to the prior exam. This is statistically significant. The bone mineral density of the left femoral neck is 0.531 g/cm2, corresponding to a T-score of -3.6, and a Z-score of -1.5. This is indicative of osteoporosis. This represents a BMD change of -12.5% compared to the prior exam. MM/XR DEXA axial skeleton IMPRESSION: Based on bone mineral density, and according to World Health Organization (WHO) criteria, the diagnosis is consistent with osteoporosis. Statistically, 68% of repeat scans fall within 1 SD (+/- 0.010 g/cm2 for AP spine L1-L4) and 1 SD (+/- 0.012 g/cm2 for femur total) FRAX is a trademark of the [employer]'s [employer] Metabolic [employer] Disease, a World Health Organization (WHO) Collaborating Center. Electronically signed by: Dimitrios Sam MD 11/22/2024 02:36 PM EDT
--- OUTSIDE RECORDS SUMMARY | 2024-11-22 14:27 | XMS_ITS | Patient Health Record ---
Author Organization [facility] Address [address] [place] [address] Care Team Providers Care Skimmer Name Role Phone Samantha Aguilar Primary Care Provider Dimitrios Hedrick Unavailable [phone] Reason For Referral No Information Medications Medication SIG (Take, Route, Frequency, Duration) Notes Start Date End Date Status Fish Oil Not-Taking Omeprazole Magnesium 40 mg 1 tablet 30 minutes before morning meal Orally Once a day Active Multivitamin Adult A ctive Vitamin C Active Immunizations Vaccine Route Administration Date Status Comme nts Influenza Unknown 09/28/2019 Refused Social History Tobacco Use: Social History Observation Description Date Details (start date - stop date) Former Smoker NA - NA Tobacco Use/Smoking Question Answer Notes Patient is a former smoker When did you stop smoking? year 2000 How long has it been since you last smoked? > 10 years Alcohol Screen Question Answer Notes Did you have a drink containing alcohol in the p ast year? No Points 0 Interpretation Negative Section Notes: Nonsmoker; no sig alcohol Problems Problem Type SNOMED Code ICD Code Onset Dates Problem Status W/U Status Risk Notes Problem 95514770 Pharyngoesophage al dysphagia (R13.14) Active confirmed Problem 916074019 Globus pharyngeu s (R09.89) Active confirmed Plan Of Treatment Future Test Test Name Order Date UPPER GI ENDOSCOPY 09/28/2019 Insurance Providers Payer Name Payer Address Payer Phone Subscriber Number Group Number Insured Name Patient Relationship to Insured Coverage Start Date Coverage End Date [employer] [place] [address] [address] [place] [address] [id number] HELENA CLAIRE Self - patient is the insured Medical (General) History Medical History History ICD Code Denies [place],DM,CVA,Lung disease,renal dise ase Neg. screening colonoscopy in 10/2016 michel Betancourt Reports a neg. colonoscopy a nd upper endoscopy > 10 yrs ago at [facility] Surgical History Surgery Date(Month/Year) Biopsy right breast benign cyst
== END 2024-11-22 13:57 | disposition home or self-care (01) ==
LOC: HO.MAMMO 13:56
PROVIDERS: PCP Internal Medicine; Visit Provider Internal Medicine
DX: Z12.31 Encounter for screening mammogram for malignant neoplasm of breast (principal); Z13.820 Encounter for screening for osteoporosis; Z78.0 Asymptomatic menopausal state
CPT/HCPCS: 77063; 77067; 77080

== ENCOUNTER → 2024-11-22 14:00 | Outpatient (BNV) | payer MEDICARE, SELFPAY | PROVIDERS: PCP Internal Medicine; Visit Provider Radiology Diagnostic Radiology | DX: E28.39 Other primary ovarian failure (principal) | CPT/HCPCS: 77080 ==

== ENCOUNTER 2025-02-01 11:29 | Outpatient (AMB) | payer MEDICARE, SELFPAY ==
--- NOTE | 2025-02-01 11:32 | MHC.OFFVIS ---
Vital Signs 02/01/25 11:34 Height 5 ft 0.51 in Weight 111 lb 8.862 oz BMI 21.4 BP 100/62 Blood Pressure Location Lt brachial Position Sitting Pulse 82 Pulse Source Pulse Oximeter Pulse Oximetry (%) 98 Oxygen Delivery Method Room Air Intake Visit Reasons: f/u osteoporosis Intake Note: Patient present today for Osteoporosis and Adrenal gland follow up. Counter Person Required: No Accompanied by: Self / Same As Patient Allergies No Known Allergies (No Known Allergies*) Allergy (Verified 02/01/25 11:37) HPI Comments Details: 74 YO F is seen in consultation at the request of PCP for Osteoporosis. First diagnosed in 08/17/2017. History of pathologic fracture in T8 or ONJ. Has few servings of dietary calcium per day in the form of ice cream and cheese . Takes Calcium supplement 600 mg daily in divided doses. Takes 2500 IU of Vitamin D daily. Denies ever using PPI, anticoagulant, antiepileptic or glucocorticoid medication. Not Does weight bearing exercise Fracture history: T 8 compression fx Height loss: lost 3 inches [employer] history: menopause in 50s Denies history of Kidney stones: Denies family history of Osteoporosis or hip fracture. UTD on dental cleanings and does not sees dentist every 6 months. Has planned upcoming dental work or extractions. DXA dated 04/25/20 :FINDINGS: AP SPINE L1-L4: Current: BMD 1.028 g/cm2, Z-score 0.8, T-score -1.3, osteopenia, 1.2% decrease from baseline (<5% change is not significant). Baseline: BMD 1.041 g/cm2. LEFT FEMUR, NECK: Current: BMD 0.607 g/cm2, Z-score -1.2, T-score -3.1, osteoporosis. Baseline: BMD 0.651 g/cm2. LEFT FEMUR, TOTAL: Current: BMD 0.703 g/cm2, Z-score -0.8, T-score -2.4, osteopenia, 6.4% decrease from baseline (<5% change is not significant). Baseline: BMD 0.751 g/cm2. Recent DEXA showed continued bone loss FINDINGS: The bone mineral density of the lumbar spine is 0.925 g/cm2, corresponding to a T-score of -2.0, and a Z-score of 0.2. This is indicative of osteopenia. This represents a BMD change of -7.0% compared to the prior exam. This is statistically significant. The bone mineral density of the left total hip is 0.603 g/cm2, corresponding to a T-score of -3.2, and a Z-score of -1.2. This is indicative of osteoporosis. This represents a BMD change of -14.2% compared to the prior exam. This is statistically significant. The bone mineral density of the left femoral neck is 0.531 g/cm2, corresponding to a T-score of -3.6, and a Z-score of -1.5. This is indicative of osteoporosis. This represents a BMD change of -12.5% compared to the prior exam. MM/XR DEXA axial skeleton IMPRESSION: Based on bone mineral density, and according to World Health Organization (WHO) criteria, the diagnos IDENTIFIED RISK FACTORS: Osteoporosis, low body weight, menopause. HISTORY OF FRACTURE: None listed. MEDICATIONS: Calcium supplements or multivitamin, vitamin D. Secondary workup was negative The patient is a 74-year-old female presenting with osteoporosis management. She has a history of low bone density and compression fractures, which places her at high risk for further fractures, including hip fractures. Previous discussions included potential treatments with anabolic agents such as Evenity, Tymlos, and Forteo, but no treatment was initiated. The patient's recent bone density test indicated continued bone loss, with a T-score of -3.6 in the left femoral neck, categorizing her condition as severe osteoporosis. She has not been consistent with taking calcium and vitamin D supplements, which are crucial for her bone health. The patient has not undergone any radiation therapy for cancer and has no recent history of heart attack or stroke. Her insurance,, is considered good, but there are concerns about the cost of medications like Evenity. [facility] Medical History Adrenal mass T4 vertebral fracture Hiatal hernia Pure hypercholesterolemia B12 deficiency Hypovitaminosis D Osteoporosis Surgical History History of breast biopsy Family History Father No problems noted. Mother No problems noted. Maternal Grandmother No problems noted. Social History Household Members: None Household Members Other:: roomate Housing: House Alcohol intake: former Patient Tobacco Use Status: Former Tobacco user Tobacco use type: Cigarette e-Cigarette/Vaping Use: Never Used Second Hand Smoke Exposure: No service: No Current occupational status: retired Cognitive needs: No Hearing needs: No Vision needs: Yes Physical Exam Vital Signs: Last Vital Signs Pulse 82 02/01/25 11:34 BP 100/62 02/01/25 11:34 Pulse Ox 98 02/01/25 11:34 Oxygen Delivery Method Room Air 02/01/25 11:34 BMI result Body Mass Index 21.4 Assessment & Plan Assessment & Plan (1) Osteoporosis: Code(s): M81.0 - Age-related osteoporosis without current pathological fracture Category: Medical Qualifiers: Osteoporosis type: age-related Presence of current pathological fracture: without current pathological fracture Qualified Code(s): M81.0 - Age-related osteoporosis without current pathological fracture Plan: This is 71-year-old white female with a history of osteoporosis and thoracic compression fractures. Secondary workup is negative Plan is to consider anabolic therapy should as teriparatide vs Tymlos vs Evenity considering compression fractures and history of severe osteoporosis placing patient at the highest risk of fracture. We will rediscuss this with the patient as she was lost to follow up previously and was going to get back to us regarding therapy 1. Osteoporosis The patient has severe osteoporosis with a T-score of -3.6 in the left femoral neck, indicating a high risk for fractures. The plan includes considering anabolic agents such as Evenity, Tymlos, or Forteo to build bone density. The patient is advised to improve adherence to calcium and vitamin D supplementation. Insurance coverage and cost considerations for medications were discussed, with a focus on finding a feasible treatment plan. During the visit, I discussed the patient's severe osteoporosis and the associated high risk of fractures. We reviewed potential treatment options, including Evenity, Tymlos, and Forteo, and the importance of following anabolic therapy with a maintenance treatment like Prolia. I emphasized the need for consistent calcium and vitamin D supplementation. We also discussed the potential costs and insurance coverage for these treatments, and I encouraged the patient to consider starting therapy to prevent further fractures. - Take calcium and vitamin D supplements daily to support bone health. - Consider starting treatment with an anabolic agent like Evenity, Tymlos, or Forteo to improve bone density. - Follow up with insurance to understand coverage and costs for osteoporosis medications. - The patient had an opportunity to ask questions regarding treatment plan. The patient expressed understanding and agreement with the above treatment plan. Patient was informed and verbally consented to the use of an ambient scribe for clinic note documentation during this visit. (2) Adrenal mass: Code(s): E27.8 - Other specified disorders of adrenal gland Category: Medical Plan: Adrenal masses longstanding but appears to be enhancing in 2013. Repeat CT scan with adrenal protocol showed mass to have benign characteristics. Dexamethasone suppression test was normal. Workup for pheochromocytoma including 24 hour urine for metanephrines normetanephrines were normal The plan is to continue to observe. There was no need for any further workup or follow up considering previously negative workup and benign characteristics on imaging. Coding Level of Care Code Est Pt Level 3 (84457) Diagnoses Age-related osteoporosis without current pathological fracture M81.0 Osteoporosis type: age-related Presence of current pathological fracture: without current pathological fracture Adrenal mass E27.8
[2025-02-01 11:34] VITALS: BP 100/62; PULSE 82; O2SAT 98; BMI 21.4
--- OUTSIDE RECORDS SUMMARY | 2025-02-01 14:49 | XMS_ITS | Patient Health Record ---
Author Organization [facility] Address [address] [place] [address] Care Team Providers Care Hogshead Liner Name Role Phone Samantha Aguilar Primary Care Provider Dimitrios Hedrick Unavailable [phone] Reason For Referral No Information Medications Medication [...] Problem Status W/U Status Risk Notes Problem Dysphagia (30714313) Pharyngoesophageal dysphagia (R13.14) Active confirmed Problem Globus pharyngeus (234968854) Globus pharyngeus (R09.89) Active confirmed Plan Of Treatment Future Test Test Name Order Date UPPER GI ENDOSCOPY 09/28/2019 Insurance Providers Payer Name Payer Address Payer Phone Subscriber Number Group Number Insured Name Patient Relationship to Insured Coverage Start Date Coverage End Date [employer] [place] [address] [address] [place] [address] [id number] TERGLIAF LOLLY, HELENA Self - patient is the insured Medical (General) History Medical History History ICD Code Denies [place],DM,CVA,Lung disease,renal dise ase Neg. screening colonoscopy in 10/2016 michel Betancourt Reports a neg. colonoscopy a nd upper endoscopy > 10 yrs ago at [facility] Surgical History Surgery Date(Month/Year) Biopsy right breast benign cyst
== END 2025-02-02 08:01 | disposition home or self-care (01) ==
LOC: HO.ENCR 11:29
PROVIDERS: PCP Internal Medicine; Visit Provider Internal Medicine Endocrinology, Diabetes & Metabolism
DX: M81.0 Age-related osteoporosis without current pathological fracture (principal); E27.8 Other specified disorders of adrenal gland
CPT/HCPCS: 99213

== ENCOUNTER → 2025-02-01 11:29 | Outpatient (BNVA) | payer MEDICARE, SELFPAY | PROVIDERS: PCP Internal Medicine; Visit Provider Internal Medicine Endocrinology, Diabetes & Metabolism | DX: M81.0 Age-related osteoporosis without current pathological fracture (principal); E27.8 Other specified disorders of adrenal gland | CPT/HCPCS: 99212 ==